=== PATIENT | female | born 1995 | race Caucasian/White ===

== ENCOUNTER 2022-04-18 20:00 | Outpatient (REF) | payer MEDICAID, SELFPAY ==
[2022-04-22 13:45] LABS: Chlamydia Result Negative (Negative); GC Result Negative (Negative)
== END 2022-04-18 20:01 | disposition home or self-care (01) ==
LOC: LBN 20:00
PROVIDERS: Visit Provider Physician Assistant Medical
DX: N89.8 Other specified noninflammatory disorders of vagina (principal); R35.0 Frequency of micturition; R30.0 Dysuria
CPT/HCPCS: 87329; 87491; 87591; 87480; 87510; 87660

== ENCOUNTER 2022-04-29 20:30 | Emergency (ER) | payer MEDICAID, SELFPAY ==
[2022-04-29 20:37] VITALS: BP 158/90; PULSE 89; RESP 18; TEMP 36.7; O2SAT 100
[2022-04-29] MEDS: Normal Saline 1,000 ML 1000 ML IV (22:10)
[2022-04-29 22:13] LABS: Abs Immature Grans 0.06 10^3/uL (0.0-0.06); Absolute Basophil Count 0.06 10^3/uL (0.0-0.2); Absolute Eosinophil Count 0.16 10^3/uL (0.0-0.7); Absolute Lymphocyte Count 3.14 10^3/uL (1.2-3.4); Absolute Monocyte Count 0.79 10^3/uL (0.1-0.8); Absolute Neutrophil Count 7.88 10^3/uL (1.2-6.7); Basophils % 0.5; Eosinophils % 1.3; HCT 40.9 % (36.0-46.0); HGB 13.6 g/dL (11.2-15.7); Immature Grans % 0.5; MCH 28.9 pg (27.0-33.0); MCHC 33.3 % (32.0-36.0); MCV 87 fL (80-95); MPV 8.8 fL (8.0-11.0); Monocytes % 6.5; Neutrophils % 65.2; Platelet Count 427 10^3/uL (130-400); RDW 13.1 % (11.7-14.6); RDW-SD 41.5 fL; WBC 12.08 10^3/uL (4.4-10.8)
[2022-04-29 22:15] LABS: Bilirubin Negative (Negative); Blood Small (Negative); Clarity Clear (Clear); Glucose Negative (Negative); Ketones Negative (Negative); Leukocyte Esterase Trace (Negative); Nitrite Negative (Negative); Specific Gravity 1.025 (1.005-1.025); Urobilinogen 0.2 EU/dL (Up TO 0.2)
[2022-04-29 22:25] LABS: Bacteria Few HPF (Negative); Crystals Negative HPF (Negative); Epithelial Cells Few HPF (Negative); Mucus Trace (Negative)
[2022-04-29 22:26] LABS: C & S Indicated? Yes
--- NOTE | 2022-04-29 22:45 | W.ED.GENAD ---
Discharge Plan Disposition Patient Disposition: HOME Condition: Improving Discharge Details Chief Complaint: Nausea/Vomit/Diar Clinical Impression: Nausea & vomiting, Weakness generalized Primary Care Provider: Unknown,Unknown ED Provider: Cm Weaver Home Meds and New Rx's Prescriptions: No Action No Known Home Meds Discharge Instructions Instructions: Acute Nausea and Vomiting (ED), Weakness (ED) Additional Instructions: Work-up in the ER does not reveal any obvious emergent process. Please watch for new or worsening symptoms and return to the ER for any concerns. Lastly, I have placed you on the care management list to help expedite outpatient primary care follow up Medical Decision Making 26-year-old female, obesity and anxiety, presents to the ER now reporting 2 separate episodes 1 today, one 1 month ago, of nausea, generalized weakness which resolved on its own in approximately 3 hours. She reports now denying any weakness or shakiness. Only symptom is that of mild nausea. Clinically she appears well, nontoxic, neurologically intact, hemodynamically stable. Currently being treated for BV. Plan is to obtain IV access, obtain routine screening laboratory values and provide IV fluid and Zofran Upon reevaluation patient reports that she is asymptomatic. Awaiting laboratory values Laboratory values are grossly unremarkable. Patient has mild nonspecific leukocytosis, she reports this is her baseline. No evidence of anemia. Electrolytes unremarkable. Creatinine 0.7 with a GFR of 122.25 glucose 108. LFTs unremarkable lipase 66 urinalysis reveals small blood trace leuk esterase, 5-10 white cells. Few epithelials. Culture is pending. Patient denies any dysuria or hematuria. Will await culture to potentially treat Discussed work-up with patient. She is relieved and has no additional questions or concerns. I placed the patient on the care management list to help expedite outpatient primary care follow-up. Standard discharge and return precautions were provided. Patient understands, is agreeable to this plan, and has no additional questions or concerns upon discharge. This documentation was generated using [employer] system, please disregard any oddities of phrase or misspellings. Medical Records Medical records reviewed: Yes I reviewed the patient's medical records. Lab Data Lab results reviewed: Yes I reviewed the patient's lab results. Labs: 04/29/22 22:10 Urine - Reflex from Ua Urine Culture - Pending Laboratory Tests Range/Units 04/29/22 04/29/22 04/29/22 22:05 22:05 22:10 WBC (4.4-10.8) 10^3/uL 12.08 H RBC (3.93-5.22) 10^6/uL 4.70 Hgb (11.2-15.7) g/dL 13.6 Hct (36.0-46.0) % 40.9 MCV (80-95) fL 87 MCH (27.0-33.0) pg 28.9 MCHC (32.0-36.0) % 33.3 RDW (11.7-14.6) % 13.1 Plt Count (130-400) 10^3/uL 427 H MPV (8.0-11.0) fL 8.8 Immature Gran % 0.5 Neutrophils % 65.2 Lymphocytes % 26.0 Monocytes % 6.5 Eosinophils % 1.3 Basophils % 0.5 Nucleated RBC % (0.0-0.3) % 0.0 Absolute Neutrophils (1.2-6.7) 10^3/uL 7.88 H Absolute Lymphocytes (1.2-3.4) 10^3/uL 3.14 Absolute Monocytes (0.1-0.8) 10^3/uL 0.79 Absolute Eosinophils (0.0-0.7) 10^3/uL 0.16 Absolute Basophils (0.0-0.2) 10^3/uL 0.06 Sodium (136-145) mmol/L 139 Potassium (3.5-5.1) mmol/L 3.7 Chloride (98-107) mmol/L 103 Carbon Dioxide (21.0-32.0) mmol/L 27.5 Anion Gap (3-11) mmol/L 8.5 BUN (7-18) mg/dL 12 Creatinine (0.55-1.02) mg/dL 0.7 Est GFR (CKD-EPI 2020) (mL/min/1.73m2) 122.25 Glucose (74-106) mg/dL 108 H Calcium (8.5-10.1) mg/dL 9.2 Total Bilirubin (0.2-1.0) mg/dL 0.4 AST (15-37) U/L 24 ALT (14-59) U/L 39 Alkaline Phosphatase (46-116) U/L 56 Total Protein (6.4-8.2) g/dL 8.0 Albumin (3.4-5.0) g/dL 3.8 Lipase (73-393) U/L 66 Urine Color (Yellow) Yellow Urine Clarity (Clear) Clear Urine pH (5-8) 7.0 Ur Specific [place] (1.005-1.025) 1.025 Urine Protein (Negative) mg/dL Negative Urine Ketones (Negative) mg/dL Negative Urine Blood (Negative) Small H Urine Nitrite (Negative) Negative Urine Bilirubin (Negative) Negative Urine Urobilinogen (Up TO 0.2) EU/dL 0.2 Ur Leukocyte Esterase (Negative) Trace H Urine RBC (0-2) HPF 3-5 H Urine WBC (0-5) HPF 5-10 Ur Epithelial Cells (Negative) HPF Few Urine Crystals (Negative) HPF Negative Urine Bacteria (Negative) HPF Few Urine Mucus (Negative) Trace Ur Culture Indicated? Yes Urine Glucose (Negative) mg/dL Negative HPI General Mode of arrival: ambulatory. Date/Time Provider Initiated Documentation: 04/29/22 21:50. Limitations to Documentation: no limitations. Information obtained by: patient. HPI Narrative: 26-year-old female, history of anxiety and obesity, presents to the ER reporting an episode today around 2 PM feeling nauseous and then had generalized body weakness, this resolved on its own over the next couple of hours and at this time she only feels slightly nauseous. Patient states that she had a similar episode 1 month ago, resolved on its own and she never sought medical attention. She denies recent trauma. Reports that she is currently being treated for BV. She denies headache, visual changes, neck pain, fever, chest pain, cough, shortness of breath, abdominal pain. She reports vomiting 2 or 3 times today. Reports a history of what she describes as gallbladder attacks but this does not feel the same, she has had no pain. She reports chronic back pain. She denies change of bowel or bladder function. Denies numbness, tingling, weakness, focal weakness in her extremities Related Data Home Medications Medication Instructions Recorded Confirmed Unknown [No Known Home Meds] 04/29/22 04/29/22 Allergies Allergy/AdvReac Type Severity Reaction Status Date / Time No Known Allergies Allergy Unverified 04/29/22 20:42 General Stated Complaint: Nausea/Vomit/Diar NANDA: 3 Review of Systems Constitutional Constitutional: Denies fever(s), Denies headache(s) and Reports weakness (Generalized) Eyes Eyes: Denies change in vision ENT Ears, Nose, Mouth, and Throat: Denies headache(s) and Denies neck pain Cardiovascular Cardiovascular: Denies chest pain and Denies dyspnea Respiratory Respiratory: Denies cough and Denies dyspnea Gastrointestinal Gastrointestinal: Denies abdominal pain, Reports nausea and Reports vomiting Genitourinary Genitourinary: Denies dysuria Musculoskeletal Musculoskeletal: Reports back pain, Denies neck pain, Denies numbness and Denies tingling Integumentary/Breasts Skin/Breast: Denies rash Neurologic Neurologic: Denies headache(s), Denies numbness, Denies tingling and Reports weakness (Generalized) PFSH All Active Problems (Updated 04/29/22 @ 23:12 by ANDRES Barger) Nausea & vomiting (Acute) Weakness generalized (Acute) Social History Smoking/Tobacco Use Status: Never Smoking risk assessment performed?: Yes Alcohol Intake: never Drug use: Never Substance use type: does not use Do you feel safe at home: Yes Do you feel safe in your relationship?: Yes Exam Const General: cooperative, healthy appearing, comfortable and no acute distress Orientation: alert, awake and oriented x3 HENMT Head: normal to inspection, normocephalic and atraumatic Face and sinus: normal facial exam Mouth: moist mucous membranes Throat: posterior oropharynx normal Eyes General: appearance normal, both eyes and all related structures Conjunctivae: conjunctivae normal Neck Neck: normal visual inspection, full ROM, no meningeal signs, trachea midline and supple Resp Effort & Inspection: normal respiratory effort and able to speak in complete sentences Auscultation: clear to auscultation bilaterally Cardio Rate: regular rate Rhythm: regular rhythm GI Inspection: obesity Palpation: soft, not firm, no guarding, no pulsatile masses and nontender Auscultation: normal bowel sounds Back/Spine/Pelvis Back: no CVA tenderness Skin General skin exam: no rashes or lesions noted Neuro General: patient alert, patient awake, moves all extremities and no focal motor deficits Cognition: normal cognition Speech: speech normal Gait: normal gait Motor: muscle tone normal throughout Sensory Exam: no sensory deficits noted Psych Appearance: grossly normal Mental Status: mental status grossly normal Course Vital Signs Vital signs: Vital Signs Temperature 36.7 C 04/29/22 20:37 Pulse 89 04/29/22 20:37 Respiratory Rate 18 04/29/22 20:37 Blood Pressure 158/90 H 04/29/22 20:37 Pulse Oximetry 100 04/29/22 20:37 Temperature 36.7 C 04/29/22 20:37 Temperature Source Skin 04/29/22 20:37 Pulse 89 04/29/22 20:37 Respiratory Rate 18 04/29/22 20:37 Respiratory Effort Non-Labored 04/29/22 20:43 Blood Pressure 158/90 H 04/29/22 20:37 Pulse Oximetry 100 04/29/22 20:37 Pain Level 8 04/29/22 20:37 Lab/Test Results Lab/Test Results: 04/29/22 22:10 Urine - Reflex from Ua Urine Culture - Pending Laboratory Tests Range/Units 04/29/22 04/29/22 22:05 22:10 WBC (4.4-10.8) 10^3/uL 12.08 H RBC (3.93-5.22) 10^6/uL 4.70 Hgb (11.2-15.7) g/dL 13.6 Hct (36.0-46.0) % 40.9 MCV (80-95) fL 87 MCH (27.0-33.0) pg 28.9 MCHC (32.0-36.0) % 33.3 RDW (11.7-14.6) % 13.1 Plt Count (130-400) 10^3/uL 427 H MPV (8.0-11.0) fL 8.8 Immature Gran % 0.5 Neutrophils % 65.2 Lymphocytes % 26.0 Monocytes % 6.5 Eosinophils % 1.3 Basophils % 0.5 Nucleated RBC % (0.0-0.3) % 0.0 Absolute Neutrophils (1.2-6.7) 10^3/uL 7.88 H Absolute Lymphocytes (1.2-3.4) 10^3/uL 3.14 Absolute Monocytes (0.1-0.8) 10^3/uL 0.79 Absolute Eosinophils (0.0-0.7) 10^3/uL 0.16 Absolute Basophils (0.0-0.2) 10^3/uL 0.06 Urine Color (Yellow) Yellow Urine Clarity (Clear) Clear Urine pH (5-8) 7.0 Ur Specific [place] (1.005-1.025) 1.025 Urine Protein (Negative) mg/dL Negative Urine Ketones (Negative) mg/dL Negative Urine Blood (Negative) Small H Urine Nitrite (Negative) Negative Urine Bilirubin (Negative) Negative Urine Urobilinogen (Up TO 0.2) EU/dL 0.2 Ur Leukocyte Esterase (Negative) Trace H Urine RBC (0-2) HPF 3-5 H Urine WBC (0-5) HPF 5-10 Ur Epithelial Cells (Negative) HPF Few Urine Crystals (Negative) HPF Negative Urine Bacteria (Negative) HPF Few Urine Mucus (Negative) Trace Ur Culture Indicated? Yes Urine Glucose (Negative) mg/dL Negative POC- Test(urine) Negative
[2022-04-29 22:47] LABS: ALT 39 U/L (14-59); AST 24 U/L (15-37); Albumin 3.8 g/dL (3.4-5.0); Alkaline Phosphatase 56 U/L (46-116); Anion Gap 8.5 mmol/L (3-11); BUN 12 mg/dL (7-18); Bilirubin, Total 0.4 mg/dL (0.2-1.0); CO2 27.5 mmol/L (21.0-32.0); CREATININE 0.7 mg/dL (0.55-1.02); Calcium 9.2 mg/dL (8.5-10.1); Chloride 103 mmol/L (98-107); Estimated GFR 122.25 (mL/min/1.73m2); Glucose 108 mg/dL (74-106); Lipase 66 U/L (73-393); Potassium 3.7 mmol/L (3.5-5.1); Sodium 139 mmol/L (136-145)
--- NOTE | 2022-04-29 23:00 | NUR.NOTE ---
Referral to Care Management to establish pcp routinely.Nursing Note:
[2022-04-29] MEDS: Ondansetron 4 MG/2 ML VIAL IVP (23:06)
== END 2022-04-29 23:28 | disposition home or self-care (01) ==
PROVIDERS: Emergency Provider Physician Assistant
DX: R11.2 Nausea with vomiting, unspecified (principal); R53.1 Weakness; E66.9 Obesity, unspecified; D72.829 Elevated white blood cell count, unspecified
CPT/HCPCS: 36415; 80053; 81025; 83690; 96361; 96374; 99284; 81003; 81015; 85025; 87086; J2405

== ENCOUNTER 2022-08-05 02:56 | Emergency (ER) | payer MEDICAID, SELFPAY ==
--- NOTE | 2022-08-05 02:58 | ED.GENADUL_ITS ---
Discharge Plan Disposition Patient Disposition: Home Condition: Improving Discharge Details Clinical Impression: Epigastric abdominal pain Primary Care Provider: None,None ED Provider: Gini Guo Home Meds and New Rx's Prescriptions: New sucralfate [Carafate] 1 gram tablet 1 gm PO QACHS Qty: 14 0RF pantoprazole [Protonix] 40 mg tablet,delayed release (DR/EC) 40 mg PO DAILY Qty: 14 0RF sucralfate [Carafate] 100 mg/mL suspension 10 ml PO QACHS Qty: 400 0RF Discharge Instructions Additional Instructions: Your blood tests today are reassurring and show no evidence of acute concerning findings. Your symptoms may be due to gastroesophageal reflux disease, gastritis, peptic ulcer disease among other possible gastrointestional causes. It is recommended to eliminate certain foods and drinks in the diet that may contribute to reflux including alcohol, citrus and spicy foods, high fat, fried and sugary foods, chocolate, peppermint and caffeine. Stress can also contribute to and worsen reflux or an ulcer. Prescriptions for carafate and protonix have been sent electronically to your pharmacy. Call the general surgery office tomorrow to schedule a follow up appointment for re-evaluation of your symptoms and consideration for upper endoscopy if your symptoms do not improve or worsen. Return immediately to the emergency department if you develop any worsening or new concerning symptoms. Referrals: Karri Ramirez MD [ [facility] STAFF PHYSICIAN] - Discharge Data Discharge Date/Time-TO BE ENTERED AT DEPARTURE: 08/05/22 04:17 Discharge Physician: Gini Guo Medical Decision Making 0310 -- 27yo F w/ a h/o morbid obesity, hiatal hernia and gerd presents for constant sharp upper abdominal pain and nausea for the past 5 days. Pt appears nontoxic. She has epigastric tenderness. Urine test negative. As her pain is worse with eating and she also admits to indigestion, suspect GI etiology, such as GERD, gastritis, PUD, cholelithiasis, cholecys titis, pancreatitis. History and presentation does not appear c/w ACS, PE, dissection. Will place an iv, bolus IVF, screening labs and give IV pepcid, zofran and PO GI cocktail and carafate and reassess. Do not see an indication for imaging at this time. 0415 --labs reviewed. White blood cell count 13.51. Remainder of labs unremarkable. Patient reassessed and she feels much better and would like to go home. Prescriptions for Carafate and Protonix sent electronically to her pharmacy. Patient had requested liquid Carafate which was also sent electronically. She is advised on possible triggers for GERD, gastritis. She is advised to call general surgery for follow-up and for consideration for upper endoscopy. Advised to follow up with the primary care doctor for re-evaluation. Usual and customary return precautions given prior to discharge. Medical Records Medical records reviewed: Yes I reviewed the patient's medical records. Lab Data Lab results reviewed: Yes I reviewed the patient's lab results. Labs: Laboratory Tests Range/Units 08/05/22 08/05/22 08/05/22 03:30 03:30 03:30 WBC (4.4-10.8) 10^3/uL 13.51 H RBC (3.93-5.22) 10^6/uL 4.46 Hgb (11.2-15.7) g/dL 13.2 Hct (36.0-46.0) % 39.7 MCV (80-95) fL 89 MCH (27.0-33.0) pg 29.6 MCHC (32.0-36.0) % 33.2 RDW (11.7-14.6) % 13.1 Plt Count (130-400) 10^3/uL 426 H MPV (8.0-11.0) fL 8.8 Immature Gran % 0.6 Neutrophils % 55.0 Lymphocytes % 34.9 Monocytes % 6.8 Eosinophils % 2.1 Basophils % 0.6 Nucleated RBC % (0.0-0.3) % 0.0 Absolute Neutrophils (1.2-6.7) 10^3/uL 7.43 H Absolute Lymphocytes (1.2-3.4) 10^3/uL 4.71 H Absolute Monocytes (0.1-0.8) 10^3/uL 0.92 H Absolute Eosinophils (0.0-0.7) 10^3/uL 0.28 Absolute Basophils (0.0-0.2) 10^3/uL 0.08 Sodium (136-145) mmol/L 141 Potassium (3.5-5.1) mmol/L 3.7 Chloride (98-107) mmol/L 104 Carbon Dioxide (21.0-32.0) mmol/L 26.8 Anion Gap (3-11) mmol/L 10.2 BUN (7-18) mg/dL 12 Creatinine (0.55-1.02) mg/dL 0.7 Est GFR (CKD-EPI 2020) (mL/min/1.73m2) 121.49 Glucose (74-106) mg/dL 106 Calcium (8.5-10.1) mg/dL 9.0 Total Bilirubin (0.2-1.0) mg/dL 0.2 AST (15-37) U/L 17 ALT (14-59) U/L 37 Alkaline Phosphatase (46-116) U/L 69 Total Protein (6.4-8.2) g/dL 7.9 Albumin (3.4-5.0) g/dL 3.9 Lipase (73-393) U/L 81 HPI General Mode of arrival: ambulatory . Date/Time Provider Initiated Documentation: 08/05/22 02:57 . Limitations to Documentation: no limitations . Information obtained by: patient . HPI Narrative: Pt is a 27yo F w/ a h/o morbid obesity and GERD who presents to the ED w/ a c/o upper abdominal pain for the past 5 days. Pt states the pain has been constant, sharp, located in the epigastrum with radiation to her back. Pt states the pain is worse with eating. She states the pain is currently 7/10. She admits to some relief with pepcid and carafate. She admits to nausea but denies fever, vomiting, chest pain, shortness of breath, urinary symptoms or diarrhea. Pt denies drugs and admits to occasional alcohol use. Last alcoholic drink 2 weeks ago. She states her last bowel movement was 2 hours ago and within normal limits. Pt states she has taken prilosec in the past but had reaction of feeling dizzy so stopped taking it. Related Data Home Medications Medication Instructions Recorded Confirmed pantoprazole 40 mg tablet,delayed 40 mg PO DAILY #14 tabs 08/05/22 release (Protonix) sucralfate 1 gram tablet (Carafate) 1 gm PO QACHS #14 tabs 08/05/22 sucralfate 100 mg/mL oral 10 ml PO QACHS #400 mL 08/05/22 suspension (Carafate) Previous Rx's Medication Instructions Recorded pantoprazole 40 mg tablet,delayed 40 mg PO DAILY #14 tabs 08/05/22 release (Protonix) sucralfate 1 gram tablet (Carafate) 1 gm PO QACHS #14 tabs 08/05/22 sucralfate 100 mg/mL oral 10 ml PO QACHS #400 mL 08/05/22 suspension (Carafate) Allergies Allergy/AdvReac Type Severity Reaction Status Date / Time No Known Allergies Allergy Unverified 08/05/22 04:13 General Stated Complaint: Abd Prob NANDA: 3 Review of Systems All systems reviewed & are unremarkable except as noted in HPI and below Constitutional Constitutional: Reports as per HPI, Denies chills and Denies fever(s) Eyes Eyes: Denies blurry vision ENT Ears, Nose, Mouth, and Throat: Denies dizziness, Denies sore throat and Denies throat swelling Cardiovascular Cardiovascular: Denies chest pain and Denies dyspnea Respiratory Respiratory: Denies cough and Denies dyspnea Gastrointestinal Gastrointestinal: Reports abdominal pain, Denies diarrhea, Reports nausea and Denies vomiting Genitourinary Genitourinary: Denies hematuria and Denies dysuria Musculoskeletal Musculoskeletal: Denies back pain and Denies numbness Integumentary/Breasts Skin/Breast: Denies lesions and Denies rash Neurologic Neurologic: Denies dizziness, Denies localized weakness and Denies numbness Allergic/Immunologic Allergic/Immunologic: Denies throat swelling PFSH All Active Problems (Updated 08/05/22 @ 03:52 by Gini Guo DO) Epigastric abdominal pain (Acute) Medical History (Updated 08/05/22 @ 03:52 by Gini Guo DO) GERD (gastroesophageal reflux disease) Hiatal hernia Morbid obesity Surgical History (Updated 08/05/22 @ 03:25 by Gini Guo DO) No significant past surgical history Social History Smoking/Tobacco Use Status: Never Smoking risk assessment performed?: Yes Alcohol Intake: never Drug use: Never Substance use type: does not use Do you feel safe at home: Yes Do you feel safe in your relationship?: Yes Exam Const General: cooperative, healthy appearing and no acute distress HENDC Head: normal to inspection Face and sinus: normal facial exam Eyes General: appearance normal, both eyes and all related structures Pupils: PERRL EOM: EOM intact bilaterally Neck Neck: normal visual inspection and No submandibular swelling Lymphatic: no lymphadenopathy noted Chest Chest: normal inspection of the chest and no tenderness Resp Effort & Inspection: normal respiratory effort and able to speak in complete sentences Auscultation: clear to auscultation bilaterally Cardio Rate: regular rate Rhythm: regular rhythm GI Inspection: normal to inspection Palpation: soft, not firm, not rigid and tender in the epigastrum Auscultation: hypoactive bowel sounds Back/Spine/Pelvis Thoracic/Lumbar Spine: thoracic and lumbar spine normal to inspection Pelvis: no pain with anterior-posterior compression Skin General skin exam: no rashes or lesions noted Neuro General: patient alert, patient awake and patient oriented x3 Cognition: normal cognition Speech: speech normal Motor: muscle tone normal throughout Sensory Exam: no sensory deficits noted Extrem General: normal to inspection, full ROM, capillary refill normal, no calf tenderness bilaterally and no edema Psych Appearance: grossly normal Mental Status: mental status grossly normal Speech and Movement: speech and movement normal Affect: normal affect
[2022-08-05 03:02] VITALS: BP 144/81; PULSE 104; RESP 16; TEMP 36.8; O2SAT 99
[2022-08-05 03:34] LABS: Abs Immature Grans 0.08 10^3/uL (0.0-0.06); Absolute Basophil Count 0.08 10^3/uL (0.0-0.2); Absolute Eosinophil Count 0.28 10^3/uL (0.0-0.7); Absolute Lymphocyte Count 4.71 10^3/uL (1.2-3.4); Absolute Monocyte Count 0.92 10^3/uL (0.1-0.8); Absolute Neutrophil Count 7.43 10^3/uL (1.2-6.7); Basophils % 0.6; Eosinophils % 2.1; HCT 39.7 % (36.0-46.0); HGB 13.2 g/dL (11.2-15.7); Immature Grans % 0.6; Lymphocytes % 34.9; MCH 29.6 pg (27.0-33.0); MCHC 33.2 % (32.0-36.0); MCV 89 fL (80-95); MPV 8.8 fL (8.0-11.0); Monocytes % 6.8; Platelet Count 426 10^3/uL (130-400); RBC 4.46 10^6/uL (3.93-5.22); RDW 13.1 % (11.7-14.6); RDW-SD 42.7 fL; WBC 13.51 10^3/uL (4.4-10.8)
[2022-08-05] MEDS: Famotidine 20 MG/2 ML VIAL IVP (03:35)
[2022-08-05] MEDS: Normal Saline 1,000 ML 1000 ML IV (03:35)
[2022-08-05] MEDS: Sucralfate 1 GM TAB PO (03:40)
[2022-08-05 03:43] LABS: Lipase 81 U/L (73-393)
[2022-08-05 03:48] LABS: ALT 37 U/L (14-59); AST 17 U/L (15-37); Albumin 3.9 g/dL (3.4-5.0); Alkaline Phosphatase 69 U/L (46-116); Anion Gap 10.2 mmol/L (3-11); BUN 12 mg/dL (7-18); Bilirubin, Total 0.2 mg/dL (0.2-1.0); CO2 26.8 mmol/L (21.0-32.0); CREATININE 0.7 mg/dL (0.55-1.02); Chloride 104 mmol/L (98-107); Estimated GFR 121.49 (mL/min/1.73m2); Glucose 106 mg/dL (74-106); Potassium 3.7 mmol/L (3.5-5.1); Sodium 141 mmol/L (136-145); Total Protein 7.9 g/dL (6.4-8.2)
[2022-08-05 04:21] VITALS: BP 156/94; PULSE 71; RESP 16; TEMP 36.8; O2SAT 98
== END 2022-08-05 04:17 | disposition home or self-care (01) ==
PROVIDERS: Emergency Provider Physician Assistant
DX: R10.13 Epigastric pain (principal)
CPT/HCPCS: 36415; 80053; 81025; 83690; 96361; 96374; 99284; 85025; 99283

== ENCOUNTER 2022-11-18 16:11 | Outpatient (REF) | payer MEDICAID, SELFPAY ==
--- NOTE | 2022-11-18 16:20 | PAPFT_PTH ---
PATIENT: Cassie Multani LOC: [facility] U#:[id number] AGE/SX: 27/F ROOM: RE11/18/[address]: Judith Jacob MD : [id number] BED: DIS: 11/18/2022 SPEC #: [id number] RECD: 11/18/22 17:51 STATUS: DEMARCUS REAmmon #: [id number] LAURA: 11/18/22 16:[address]: Judith Jacob DEPT: [facility] Cytology RECD BY: Fany Haider ENTERED: 11/18/22 17:51 SP TYPE: PAPFT RIRI DR: Zo Shultz APRN Tissues: 1 - CX/ENDOCX FOR PAP SMEARS Procedures: PAP THIN PREP/[facility] Screening Comments: [id number] (CHLAMYDIA/GC)
[2022-11-19 15:06] LABS: Chlamydia Result Negative (Negative); GC Result Negative (Negative)
== END 2022-11-18 16:12 | disposition home or self-care (01) ==
LOC: LBN 16:11
PROVIDERS: PCP Nurse Practitioner; Visit Provider Obstetrics & Gynecology
DX: R87.610 Atypical squamous cells of undetermined significance on cytologic smear of cervix (ASC-US) (principal)
CPT/HCPCS: 87491; 87591; 88142

== ENCOUNTER 2022-11-27 03:38 | Outpatient (CLI) | payer MEDICAID, SELFPAY ==
[2022-11-27 09:25] LABS: Calculated LDL 95 mg/dL (<100); Cholesterol 149 mg/dL (<200); HDL Cholesterol 38 mg/dL (40-60); TSH (W/Ref FT4) 2.81 uIU/mL (0.36-3.74); Triglyceride 80 mg/dL (<150)
[2022-11-28 09:26] LABS: HIV-1/2 Ag & Ab Screen Negative (Negative)
[2022-11-28 10:04] LABS: Hepatitis C Ab w Rflx HCV PCR Negative (Negative)
[2022-12-05 10:34] LABS: Testosterone, Free 0.77 ng/dL (<0.13-1.06); Testosterone, Total 26 ng/dL (8-60)
== END 2022-11-27 03:39 | disposition home or self-care (01) ==
LOC: LBO 03:38
PROVIDERS: Obstetrics & Gynecology; PCP Nurse Practitioner; Visit Provider Nurse Practitioner
DX: I10 Essential (primary) hypertension (principal); F41.8 Other specified anxiety disorders; K21.9 Gastro-esophageal reflux disease without esophagitis; E66.01 Morbid (severe) obesity due to excess calories; L68.8 Other hypertrichosis; R73.09 Other abnormal glucose; Z11.4 Encounter for screening for human immunodeficiency virus [HIV]; Z11.59 Encounter for screening for other viral diseases
CPT/HCPCS: 36415; 80061; 84402; 84403; 86803; 87389; 83036; 84443

== ENCOUNTER 2022-12-15 02:27 | Outpatient (CLI) | payer MEDICAID, SELFPAY ==
--- NOTE | 2022-12-15 07:15 | DI.US_ITS ---
Exam(s) US BREAST LT COMPLETE EXAM: US BREAST LT COMPLETE CLINICAL HISTORY: breast tenderness,n64.4 TECHNIQUE: Complete ultrasound of the left breast was performed using standard protocol. COMPARISON: No exams were available for comparison FINDINGS: No solid or cystic masses, hypoechoic foci, areas of abnormal shadowing, or areas of skin thickening. No ductal dilatation IMPRESSION: No sonographically suspicious finding. BI-RADS Category 1 - Negative A negative exam should not preclude further investigation of a clinically suspicious finding. DATA REPOSITORY:
== END 2022-12-15 02:47 ==
LOC: DI 02:27
PROVIDERS: PCP Nurse Practitioner; Visit Provider Obstetrics & Gynecology
DX: N64.4 Mastodynia (principal)
CPT/HCPCS: 76642

== ENCOUNTER 2022-12-31 21:45 | Emergency (ER) | payer MEDICAID, SELFPAY ==
[2022-12-31 21:48] VITALS: BP 158/95; PULSE 90; RESP 16; TEMP 36.8; O2SAT 99
--- NOTE | 2022-12-31 21:49 | ED.GENADUL_ITS ---
Discharge Plan Disposition Patient Disposition: Home Discharge Details Clinical Impression: Acute pharyngitis Primary Care Provider: Zo Shultz ED Provider: Domingo Fink Home Meds and New Rx's Prescriptions: Continued CBD Gummie 10 mg PO QAM levonorgestrel-ethinyl estrad 0.1-20 mg-mcg tablet 1 tab PO DAILY Qty: 84 4RF clindamycin phosphate 1 % gel 1 applic topical BID Qty: 30 2RF lamotrigine 100 mg tablet 50 mg PO DAILY Qty: 15 2RF Rx Instructions: * Take this after completing 2 weeks of 25 mg/day * Discharge Instructions Instructions: Pharyngitis (ED) Additional Instructions: Please read all of the information that accompanies these instructions. You were seen in the emergency department for your sore throat. Your strep swab was negative for strep. You will receive a call if your strep grows in the lab in the next several days. You will also receive a call if your COVID swab is positive. Please schedule an appointment with your primary care provider later this week. Please return to the emergency department if develop any shortness of breath difficulty swallowing or handling her secretions or any worsening pain. Medical Decision Making This is an overall very well-appearing normothermic and not tachycardic 27-year-old female with acute pharyngitis. Based on enlarged cervical node and history of prior strep pharyngitis requiring hospitalization we will swab for strep and treat if positive. Given endemic COVID we will also swab for COVID and influenza. Good range of motion in the neck so I am not concerned for meningitis. Not altered to suggest encephalitis. Uvula midline so I am not concerned for peritonsillar abscess. Good range of motion in the neck is also reassuring against retropharyngeal abscess. Patient is nontoxic to suggest epiglottitis and received her childhood immunizations. She is sexually active but has had a consistent partner for the past 10 years and she denies any history of sexually transmitted infections. Given no new partner and no history of STIs will defer gonorrhea and Chlamydia testing at this point. If her strep swab is negative I suspect that her pharyngitis is most likely secondary to a viral etiology. I will treat her with 8 mg of dexamethasone. I have given her return indications including inability to handle her secretions worsening pain or any changes in her voice. 11:20 PM Strep negative. Will reflex to culture. Influenza and COVID negative. HPI General Date/Time Provider Initiated Documentation: 12/31/22 21:49 . HPI Narrative: This is a 27-year-old female in the emergency department in the setting of a sore throat. She had some sick contacts and is concerned that she might have strep throat. She has been hospitalized in the past with strep throat. She reportedly had a fever last night to 102 ?F. She feels fatigued and has had some palpitations. She took 650 mg of acetaminophen and some DayQuil at 5 PM this evening. She also had some hives on her left medial thigh for which she took diphenhydramine. She has had no trouble swallowing. No change in her voice. She is sexually active with a single male partner with whom she has been for the past 10 years. No recent symptoms of abnormal vaginal discharge. Related Data Home Medications Medication Instructions Recorded Confirmed clindamycin phosphate 1 % topical 1 applic topical BID #30 grams 11/18/22 gel levonorgestrel-ethinyl estradiol 1 tab PO DAILY #84 tabs 11/18/22 11/20/22 0.1 mg-20 mcg tablet CBD Gummie 10 mg PO QAM 11/20/22 11/20/22 lamotrigine 100 mg tablet 50 mg PO DAILY #15 tabs 11/20/22 11/20/22 Previous Rx's Medication Instructions Recorded clindamycin phosphate 1 % topical 1 applic topical BID #30 grams 11/18/22 gel levonorgestrel-ethinyl estradiol 1 tab PO DAILY #84 tabs 11/18/22 0.1 mg-20 mcg tablet lamotrigine 100 mg tablet 50 mg PO DAILY #15 tabs 11/20/22 Allergies Allergy/AdvReac Type Severity Reaction Status Date / Time lisinopril Allergy Intermediate myalgias,leg Verified 11/20/22 09:32 swelling. aripiprazole [From Abilify] AdvReac Unknown Verified 11/20/22 09:32 bupropion [From Wellbutrin] AdvReac Unknown Verified 11/20/22 09:32 fluoxetine [From Prozac] AdvReac Unknown Verified 11/20/22 09:32 venlafaxine [From Effexor] AdvReac Unknown Verified 11/20/22 09:32 zoloft AdvReac Unknown Uncoded 11/20/22 09:32 General NANDA: 3 PFSH All Active Problems (Updated 12/31/22 @ 22:10 by Domingo Fink MD) Acute pharyngitis (Acute) Pre-diabetes (Acute) Hypertension (Chronic) Anxiety (Chronic) Major depressive disorder (Chronic) Obesity, morbid, BMI 50 or higher (Acute) History of HPV infection (Acute) PTSD (post-traumatic stress disorder) (Acute) Borderline personality disorder (Acute) PCOS (polycystic ovarian syndrome) (Acute) Acanthosis nigricans (Acute) PMS (premenstrual syndrome) (Acute) Excessive hair growth (Acute) Medical History (Updated 12/31/22 @ 22:10 by Domingo Fink MD) GERD (gastroesophageal reflux disease) Hiatal hernia Pelvic pain Surgical History (Updated 08/05/22 @ 03:25 by Gini Guo DO) No significant past surgical history Family History (Updated 09/24/22 @ 10:30 by Marisol Rosenbaum) Father Substance use disorder Cancer kidney Depression Hypertension Crohn's disease Mother Substance use disorder Depression Hypertension Fibromyalgia Paternal Grandmother Colon cancer Maternal Grandmother Cancer cervical Sister Crohn's disease Social History (Updated 11/20/22 @ 09:36 by Soraya Holman LPN) Smoking/Tobacco Use Status: Former Tobacco Use Quit Date: 03/10/21 Tobacco: How many years used: 5 Smoking risk assessment performed?: Yes Alcohol Intake: current Alcohol Intake frequency: holidays/special occasions only Counseling given: No Drug use: Never Substance use type: does not use and other Details: CBD gummie qd Adopted: No Caregiver/Support person: No Foster care: No Household members: children Housing: apartment Number of Children: 1 Communication Needs: None and Corrective Lenses Education Level: high school Do you need help understanding health information?: Never 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 Pets and animals: No Sexually active: Yes Do you think of yourself as: bisexual Current gender identity: female What is your relationship status?: never How often do you talk on the phone with friends or family?: once per week How often do you get together with friends or relatives?: never Do you belong to any clubs or organized social groups?: no Panel score (0-1 are the most socially isolated patients): 0 What type of physical activity do you participate in: yoga Duration: 45-60 minutes/day Frequency: 1-2 times per week Jaylin/Episcopalian: None Special jaylin needs: No Seatbelt use: always Helmet use: Yes Helmet use: always Drive intox or ride w/intox contract driver: No Working smoke detector in home: Yes Carbon monox detector in home: Yes Do you feel safe at home: Yes Do you feel safe in your relationship?: Yes Victim of physical abuse: No Victim of emotional abuse: No History History 3 Para 1 Hx # Term Pregnancies 1 Multiple births Hx # Pregnancies Ectopic pregnancies AB induced Hx Number of Living Children 1 AB spontaneous 2 Past Pregnancies Del. Date GA/Weeks # Preg Succ Route Wgt Sex Labor Lgth Anesth esia Location [facility] 09/18/14 Yes vaginal 2721.554 g Male Delivery Date: 09/18/14 Last Updated by: Latasha Patterson Exam Narrative Exam Narrative: General: Well-appearing in no acute distress speaking in complete sentences. Head: Normocephalic, atraumatic. Eye: Pupils equal, round reactive to light. Extraocular eye movements intact. No conjunctival injection. No scleral icterus. Ear, nose, mouth, throat: Mild posterior oropharynx erythema. Uvula midline. Normal voice, handling secretions normally. Neck: Trachea midline. Mild right-sided anterior cervical lymphadenopathy. No fluctuance. Cardiovascular: Well-perfused distal extremities. Respiratory: Nonlabored respiration. Clear lungs bilaterally. Gastrointestinal: Nondistended abdomen. Musculoskeletal: No edema. Moving all 4 extremities spontaneously. Skin: Normal for age and race, grossly normal temperature and turgor. No acute rash. Neurologic: Alert and appropriate, no apparent acute deficits. Psychiatric: Mood and manner are appropriate. Grooming and personal hygiene are appropriate.
--- NOTE | 2022-12-31 22:15 | RT.EKG_ITS ---
APPROVED REPORT Exam: Resting ECG Reason for Exam: Palpitations Patient Location: E HR:82 bpm ECG Measurements Heart Rate 82 AXIS NM 150 P 38 QRSd 95 QRS 34 QT 372 T 38 QTc 436 Conclusion Sinus rhythm...normal P axis, V-rate 60- 99 Narrow complex normal sinus rhythm at a rate of 82. Normal axis. Intervals within normal limits. N o ST segment abnormalities. No T wave inversions. No prior for comparison. No acute injury pattern .
[2022-12-31] MEDS: Dexamethasone 4 MG TAB 8 MG PO (22:20)
== END 2022-12-31 22:41 | disposition home or self-care (01) ==
PROVIDERS: Emergency Provider Emergency Medicine; PCP Nurse Practitioner
DX: J02.9 Acute pharyngitis, unspecified (principal)
CPT/HCPCS: 87426; 87637; 87880; 93005; 99283; 87081; 93010; J8540

== ENCOUNTER 2023-06-29 21:58 | Emergency (ER) | payer MEDICAID, SELFPAY ==
[2023-06-29 22:05] VITALS: BP 154/83; PULSE 110; RESP 16; TEMP 37.6; O2SAT 100
[2023-06-29 22:12] VITALS: BP 148/80; PULSE 98; RESP 16; TEMP 37.6; O2SAT 99
--- NOTE | 2023-06-29 22:17 | ED.GENADUL_ITS ---
Discharge Plan Disposition Patient Disposition: Home Condition: Good Discharge Details Clinical Impression: Urinary tract infection Primary Care Provider: Zo Shultz ED Provider: Katherine Diamond Home Meds and New Rx's Prescriptions: New cephalexin 500 mg tablet 500 mg PO Q12H Qty: 10 0RF No Action CBD Gummie 10 mg PO QAM Discharge Instructions Instructions: Urinary Tract Infection in Women (ED) Additional Instructions: Cephalexin twice a day for the next 7 days. Call your primary care doctor tomorrow to schedule an appointment to follow up on your visit today. Return to the emergency department for new or worsening symptoms including fever, vomiting, mid/upper back pain, or if your symptoms have not improved in 48 hours. Referrals: Zo Shultz, [employer] [Primary Care Provider] - Medical Decision Making 28yo F with hx HTN, obesity, presenting for possible UTI. Today progressively worsening dysuria and hematuria. No recent UTIs. No systemic symptoms. No CVA tenderness to suggest pyelonephritis. Slightly tachycardiac on arrival after ambulating, vital signs and physical exam otherwise reassuring. Low sucpion for sepsis. HR improved to mid 90's within 5 minutes of resting with no intervention; would not pursue further with labs at this time as patient both looks and feels well overall. UA suggestive of UTI. Prescribed 7 day course of cephalexin (1st dose here) and discharged home. Discharged home; discharge instructions including return precautions were reviewed with patient who verablized understanding. Alll questions were answered and they are in full agreement with the plan. Lab Data Lab results reviewed: Yes I reviewed the patient's lab results. Labs: 06/29/23 22:15 Urine - Reflex from Ua Urine Culture - Pending Laboratory Tests Range/Units 06/29/23 22:15 Urine Color (Yellow) Dark Yellow Urine Clarity (Clear) Cloudy Urine pH (5-8) 6.0 Ur Specific [place] (1.005-1.025) >= 1.030 H Urine Protein (Negative) mg/dL 100 H Urine Ketones (Negative) mg/dL Negative Urine Blood (Negative) Moderate H Urine Nitrite (Negative) Positive H Urine Bilirubin (Negative) Negative Urine Urobilinogen (Up to 0.2) mg/dL 0.2 Ur Leukocyte Esterase (Negative) Trace H Urine RBC (0-2) HPF 3-5 H Urine WBC (0-5) HPF 10-20 H Ur Epithelial Cells (Negative) HPF Few Urine Crystals (Negative) HPF Few Amorphous Urine Bacteria (Negative) HPF Few Urine Casts (Negative) LPF Negative Urine Mucus (Negative) Trace Ur Culture Indicated? Yes Urine Glucose (Negative) mg/dL Negative HPI General Mode of arrival: ambulatory . Date/Time Provider Initiated Documentation: 06/29/23 22:06 . Limitations to Documentation: no limitations . Information obtained by: patient . HPI Narrative: 28yo F with hx HTN, obesity, presenting for possible UTI. Reports dysuria starting this morning progressively worsening now with hematuria. Had similar symptoms in the past (years ago) with UTI. Noted low lumbar left back pain yesterday, no flank pain or thoracic pain. No fevers. She is otherwise in her usual state of health. Related Data Home Medications Medication Instructions Recorded Confirmed CBD Gummie 10 mg PO QAM 11/20/22 06/29/23 cephalexin 500 mg tablet 500 mg PO Q12H #10 tabs 06/29/23 Previous Rx's Medication Instructions Recorded cephalexin 500 mg tablet 500 mg PO Q12H #10 tabs 06/29/23 Allergies Allergy/AdvReac Type Severity Reaction Status Date / Time lisinopril Allergy Intermediate myalgias,leg Verified 06/29/23 22:15 swelling. aripiprazole [From Abilify] AdvReac Unknown Verified 06/29/23 22:15 bupropion [From Wellbutrin] AdvReac Unknown Verified 06/29/23 22:15 fluoxetine [From Prozac] AdvReac Unknown Verified 06/29/23 22:15 venlafaxine [From Effexor] AdvReac Unknown Verified 06/29/23 22:15 zoloft AdvReac Unknown Uncoded 06/29/23 22:15 General Stated Complaint: Urinary NANDA: 4 Review of Systems Narrative: see HPI PFSH All Active Problems (Updated 06/29/23 @ 22:37 by Katherine Diamond MD) Urinary tract infection (Acute) Class 3 severe obesity due to excess calories with body mass index (BMI) of 50.0 to 59.9 in adult (Acute) 03/13/23 Weight and Wellness Mild obstructive sleep apnea (Acute ~2022) 02/08/23 Polysomnogram Study Bipolar 2 disorder (Acute) Pre-diabetes (Acute) Hypertension (Chronic) Anxiety (Chronic) Major depressive disorder (Chronic) Obesity, morbid, BMI 50 or higher (Acute) History of HPV infection (Acute) PTSD (post-traumatic stress disorder) (Acute) Borderline personality disorder (Acute) PCOS (polycystic ovarian syndrome) (Acute) Acanthosis nigricans (Acute) PMS (premenstrual syndrome) (Acute) Excessive hair growth (Acute) Medical History (Updated 06/29/23 @ 22:37 by Katherine Diamond MD) Pelvic pain Hiatal hernia GERD (gastroesophageal reflux disease) Surgical History (Updated 08/05/22 @ 03:25 by Gini Guo DO) No significant past surgical history Family History (Updated 09/24/22 @ 10:30 by Marisol Rosenbaum) Father Substance use disorder Cancer kidney Depression Hypertension Crohn's disease Mother Substance use disorder Depression Hypertension Fibromyalgia Paternal Grandmother Colon cancer Maternal Grandmother Cancer cervical Sister Crohn's disease Social History (Updated 11/20/22 @ 09:36 by Soraya Holman LPN) Smoking/Tobacco Use Status: Former Tobacco Use Quit Date: 03/10/21 Tobacco: How many years used: 5 Smoking risk assessment performed?: Yes Alcohol Intake: current Alcohol Intake frequency: holidays/special occasions only Counseling given: No Drug use: Rarely Substance use type: marijuana and other Details: CBD gummie qd Adopted: No Caregiver/Support person: No Foster care: No Household members: children Housing: apartment Number of Children: 1 Communication Needs: None and Corrective Lenses Education Level: high school Do you need help understanding health information?: Never 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 Pets and animals: No Sexually active: Yes Do you think of yourself as: bisexual Current gender identity: female What is your relationship status?: never How often do you talk on the phone with friends or family?: once per week How often do you get together with friends or relatives?: never Do you belong to any clubs or organized social groups?: no Panel score (0-1 are the most socially isolated patients): 0 What type of physical activity do you participate in: yoga Duration: 45-60 minutes/day Frequency: 1-2 times per week Jaylin/Presybeterian: None Special jaylin needs: No Seatbelt use: always Helmet use: Yes Helmet use: always Drive intox or ride w/intox milk pickup driver: No Working smoke detector in home: Yes Carbon monox detector in home: Yes Do you feel safe at home: Yes Do you feel safe in your relationship?: Yes Victim of physical abuse: No Victim of emotional abuse: No History History 3 Para 1 Hx # Term Pregnancies 1 Multiple births Hx # Pregnancies Ectopic pregnancies AB induced Hx Number of Living Children 1 AB spontaneous 2 Past Pregnancies Del. Date GA/Weeks # Preg Succ Route Wgt Sex Labor Lgth Anesth esia Location Prov Complic 09/18/14 Yes vaginal 2721.554 g Male Delivery Date: 09/18/14 Last Updated by: Latasha Ness Hoahaoism Exam Narrative Exam Narrative: General: Alert, well appearing, well nourished, in no acute distress. Head: Normocephalic, atraumatic Neck: Trachea midline, Neck supple. Cardiac: Slightly tachycardiac rate in 90's, regular. Resp: No respiratory distress. Speaking in full sentences. Abd: Soft, non-distended, nontender : No suprapubic tenderness. No CVA tenderness. Back: Mild left low lumbar/sacral paraspinal tenderness. Extremities: No deformities. Neurologic: GCS 15. Moves all extremities freely against gravity Course Vital Signs Vital signs: Vital Signs Temperature 37.6 C H 06/29/23 22:05 Pulse 110 H 06/29/23 22:05 Respiratory Rate 16 06/29/23 22:05 Blood Pressure 154/83 H 06/29/23 22:05 Pulse Oximetry 100 06/29/23 22:05 Temperature 37.6 C H 06/29/23 22:12 Temperature Source Temporal Artery Scan 06/29/23 22:05 Pulse 98 H 06/29/23 22:12 Respiratory Rate 16 06/29/23 22:12 Respiratory Effort Normal, Non-Labored 06/29/23 22:11 Blood Pressure 148/80 H 06/29/23 22:12 Blood Pressure Position Sitting 06/29/23 22:12 Pulse Oximetry 99 06/29/23 22:12 Oxygen Delivery Method Room Air 06/29/23 22:12 Oxygen Flow Rate 0 06/29/23 22:05 Pain Level 10 06/29/23 22:05 Comment 10 while urinating, 0 at rest 06/29/23 22:05
[2023-06-29 22:21] LABS: Bilirubin Negative (Negative); Blood Moderate (Negative); Clarity Cloudy (Clear); Glucose Negative (Negative); Ketones Negative (Negative); Leukocyte Esterase Trace (Negative); Nitrite Positive (Negative); Specific Gravity >= 1.030 (1.005-1.025); Urobilinogen 0.2 mg/dL (Up to 0.2)
[2023-06-29 22:28] LABS: Epithelial Cells Few HPF (Negative)
[2023-06-29 22:29] LABS: Bacteria Few HPF (Negative); C & S Indicated? Yes; Casts Negative LPF (Negative); Crystals Few Amorphous HPF (Negative); Mucus Trace (Negative)
[2023-06-29 22:48] VITALS: BP 131/73; PULSE 100; RESP 16; O2SAT 97
[2023-06-29] MEDS: Cephalexin 500 MG CAP PO (22:48)
[2023-06-29] MEDS: Cephalexin 500 MG CAP, 4 CAPS/BTL PO (22:48)
== END 2023-06-29 22:49 | disposition home or self-care (01) ==
PROVIDERS: Emergency Provider Student in an Organized Health Care Education/Training Program; PCP Nurse Practitioner
DX: N39.0 Urinary tract infection, site not specified (principal); M54.50 Low back pain, unspecified; I10 Essential (primary) hypertension
CPT/HCPCS: 87077; 99283; 81003; 81015; 87086; 87186

== ENCOUNTER 2023-12-10 21:39 | Emergency (ER) | payer MEDICAID, SELFPAY ==
[2023-12-10 21:43] VITALS: BP 175/104; PULSE 96; RESP 20; TEMP 36.8; O2SAT 100
--- NOTE | 2023-12-10 22:00 | RT.EKG_ITS ---
APPROVED REPORT Exam: Resting ECG Reason for Exam: epigastric pain, nausea Patient Location: E HR:91 bpm ECG Measurements Heart Rate 91 AXIS TN 168 P 36 QRSd 94 QRS 25 QT 362 T 38 QTc 446 Conclusion Sinus rhythm...normal P axis, V-rate 60- [address] segment or t wave abnormalities to suggest occlusive MT
--- NOTE | 2023-12-10 22:00 | DI.CT_ITS ---
Exam(s) CT ABDOMEN PELVIS W EXAM: CT ABDOMEN PELVIS W CLINICAL HISTORY: epigastrig/periumbilical abd pain. TECHNIQUE: Imaging Protocol: Axial computed tomography images with coronal and sagittal reformatted images were created and reviewed CONTRAST MATERIAL: Intravenous: Omnipaque-350 100cc Oral: None COMPARISON: No exams were available for comparison FINDINGS: VISUALIZED LUNG BASES: There are few small bubbles in the right lung base. The largest of these is p leural based at the level the right hemidiaphragm and measures 8 by 6 mm. No obvious nodule seen in the left lung base. No pleural effusions.. ABDOMEN: There is no ascites. LIVER: Liver is hypodense implying steatosis. There are no focal hepatic lesions evident. No dilate d intrahepatic ducts. GALLBLADDER/BILIARY: No obvious gallbladder pathology. CBD is not dilated. PANCREAS: No evidence of pancreatic mass nor dilatation of the pancreatic duct. SPLEEN: Spleen is not enlarged. No obvious intrasplenic lesions. Splenic and portal veins are paten t. ADRENALS: There are no significant adrenal masses. KIDNEYS:No cysts evident. No solid renal masses. No calculi nor hydronephrosis.. ABDOMINAL AORTA: Abdominal aorta is not enlarged. LYMPH NODES:There is no retroperitoneal nor paraaortic adenopathy. ABDOMINAL WALL: There is diastasis recti in the midline. Small fat containing umbilical hernia. No michael wel loops therein. GI: There is no evidence of bowel obstruction, free air, nor abscess. PELVIS: GI: No evidence of appendicitis.No evidence of sigmoid diverticulitis. LYMPH NODES: There is no intrapelvic nor inguinal adenopathy. REPRODUCTIVE: Uterus and adnexal regions appear unremarkable. There is no free fluid in the pelvis. URINARY BLADDER: No calculi nor obvious masses evident OSSEOUS: No fractures and no significant osseous lesions. IMPRESSION: 1. No acute findings in the abdomen and pelvis. 2. Other findings as above. RADIATION DOSE DELIVERED: 1,599.14mGy.cm Total DLP DATA REPOSITORY: All CT scans at this facility are submitted to the National Radiology Data Registry (NRDR) Dose Index Registry (DIR) with the [employer] (ACR). RADIATION OPTIMIZATION: All CT scans at this facility use at least one of these dose optimization te chniques: automated exposure control; mA and/or kV adjustment per patient size (includes targeted exa ms where dose is matched to clinical indication); or iterative reconstruction.
[2023-12-10 22:32] LABS: Abs Immature Grans 0.07 10^3/uL (0.0-0.06); Absolute Basophil Count 0.06 10^3/uL (0.0-0.2); Absolute Eosinophil Count 0.36 10^3/uL (0.0-0.7); Absolute Lymphocyte Count 4.56 10^3/uL (1.2-3.4); Absolute Monocyte Count 0.88 10^3/uL (0.1-0.8); Absolute Neutrophil Count 6.95 10^3/uL (1.2-6.7); Basophils % 0.5 %; Eosinophils % 2.8 %; HCT 41.5 % (36.0-46.0); HGB 13.5 g/dL (11.2-15.7); Immature Grans % 0.5 %; Lymphocytes % 35.4 %; MCH 29.2 pg (27.0-33.0); MCHC 32.5 % (32.0-36.0); MCV 90 fL (80-95); MPV 8.6 fL (8.0-11.0); Monocytes % 6.8 %; Platelet Count 405 10^3/uL (130-400); RBC 4.63 10^6/uL (3.93-5.22); RDW 13.3 % (11.7-14.6); RDW-SD 43.8 fL; WBC 12.87 10^3/uL (4.4-10.8)
[2023-12-10 22:33] LABS: Lactate 0.8 mmol/L (0.6-1.4)
[2023-12-10] MEDS: ACETAMINOPHEN 1,000 MG/100 ML BTL 400 MG IVPB (22:37)
[2023-12-10] MEDS: Normal Saline 500 ML 1000 ML IV (22:38)
[2023-12-10 22:40] LABS: Bilirubin Negative (Negative); Blood Negative (Negative); Clarity Clear (Clear); Glucose Negative (Negative); Ketones 15 mg/dL (Negative); Leukocyte Esterase Negative (Negative); Nitrite Negative (Negative); Urobilinogen 0.2 mg/dL (Up to 0.2)
[2023-12-10] MEDS: Normal Saline - Diluent 50 ML VIAL IJ (22:50)
[2023-12-10] MEDS: Omnipaque 350 MG/ML 100 ML BTL IJ (22:51)
[2023-12-10] MEDS: Normal Saline Flush 10 ML SYR IVP (22:51)
[2023-12-10 22:53] LABS: ALT 44 U/L (14-59); AST 18 U/L (15-37); Albumin 4.3 g/dL (3.4-5.0); Alkaline Phosphatase 55 U/L (46-116); Anion Gap 13.6 mmol/L (3-11); BUN 9 mg/dL (7-18); Bilirubin, Total 0.7 mg/dL (0.2-1.0); CO2 24.4 mmol/L (21.0-32.0); CREATININE 0.6 mg/dL (0.55-1.02); Calcium 9.3 mg/dL (8.5-10.1); Chloride 102 mmol/L (98-107); Estimated GFR 125.31 (mL/min/1.73m2); Glucose 82 mg/dL (74-106); HCG Quant, Pregnancy 5 mIU/mL (1-3); Potassium 3.6 mmol/L (3.5-5.1); Sodium 140 mmol/L (136-145); Total Protein 8.3 g/dL (6.4-8.2)
[2023-12-10 22:54] LABS: Troponin I < 50 ng/L (< or =60)
[2023-12-10 23:01] LABS: Lipase 19 U/L (16-77)
--- NOTE | 2023-12-10 23:47 | DI.VRAD_ITS ---
PROCEDURE INFORMATION: Exam: CT Abdomen And Pelvis With Contrast Exam date and time: 12/10/2023 22:54 Age: 28 years old Clinical indication: Other: Epigastrig/periumbilical abd pain TECHNIQUE: Imaging protocol: Computed tomography of the abdomen and pelvis with contrast. Contrast material: OMNIPAQUE 350; Contrast volume: 100 ml; Contrast route: INTRAVENOUS (IV); COMPARISON: No relevant prior studies available. FINDINGS: Lungs: Tiny right lower lobe pulmonary nodules. Likely benign at this patient's age. Liver: Fatty liver with no mass lesions. Gallbladder and bile ducts: No calcified stones. No ductal dilation. Pancreas: No ductal dilation. No masses. Spleen: No splenomegaly or focal lesions. Adrenal glands: No mass. Kidneys and ureters: No renal masses or hydronephrosis bilaterally. Stomach and bowel: No obstruction. No mucosal thickening. Appendix: Normal morphology of the appendix. Intraperitoneal space: No free air. No significant fluid collection. Vasculature: No abdominal aortic aneurysm. Lymph nodes: No significantly enlarged lymph nodes. Urinary bladder: Unremarkable as visualized. Reproductive: Unremarkable as visualized. Bones/joints: No acute fracture or subluxation. Soft tissues: Prominent subcutaneous fat. Small fat-containing umbilical hernia. Diastasis recti. IMPRESSION: 1. No acute findings. 2. Incidental findings as described. Dictated and Authenticated by: Thao Villalobos MD. Ordering:TRUDY Murphy MD
--- NOTE | 2023-12-11 00:25 | ED.GENADUL_ITS ---
Discharge Plan Disposition Patient Disposition: Home Condition: Good Discharge Details Clinical Impression: Abdominal pain Primary Care Provider: Zo Shultz ED Provider: Katherine Diamond Home Meds and New Rx's Prescriptions: New ondansetron 4 mg tablet,disintegrating 4 mg PO Q8H Qty: 20 0RF No Action CBD Gummie 10 mg PO QAM Discharge Instructions Instructions: Abdominal Pain (ED) Additional Instructions: Tylenol over the counter as needed for pain; follow the directions on the bottle. Ondansetron up to every 8 hours for nausea. Call your primary care doctor today to schedule an appointment within one week to follow up on your visit here. If you do not get your period when you expect to, please take a home test. Return to the emergency department for new or worsening symptoms including new/different/worse pain, inability to keep down fluids, or if you have any other concerns. Referrals: Zo Shultz, PERSONNEL ASSOCIATE [Primary Care Provider] - [facility] General Mode of arrival: ambulatory . Date/Time Provider Initiated Documentation: 12/10/23 21:41 . Limitations to Documentation: no limitations . Information obtained by: patient . HPI Narrative: 28yo F with hx of HTN, PCOS, presenting for two days of intermittent abdominal pain. Associated nausea. Vomited twice yesterday, nonbloody nonbilious, no vomiting today. Pain is epigastric as well as periumbilical, moderate, cramping, intermittent, comes in waves. Has not taken anything at home for pain. No constipation, diarrhea, or bloody stool. No lower abdominal pain. No fevers, chills, rash, dysuria, hematuria, or other concerns. Related Data Home Medications Medication Instructions Recorded Confirmed CBD Gummie 10 mg PO QAM 11/20/22 12/10/23 ondansetron 4 mg disintegrating 4 mg PO Q8H #20 tabs 12/11/23 tablet Previous Rx's Medication Instructions Recorded ondansetron 4 mg disintegrating 4 mg PO Q8H #20 tabs 12/11/23 tablet Allergies Allergy/AdvReac Type Severity Reaction Status Date / Time lisinopril Allergy Intermediate myalgias,leg Verified 12/10/23 21:48 swelling. aripiprazole [From Abilify] AdvReac Unknown Other (See Verified 12/10/23 21:48 Comment) bupropion [From Wellbutrin] AdvReac Unknown Other (See Verified 12/10/23 21:48 Comment) fluoxetine [From Prozac] AdvReac Unknown Other (See Verified 12/10/23 21:48 Comment) venlafaxine [From Effexor] AdvReac Unknown Other (See Verified 12/10/23 21:48 Comment) zoloft AdvReac Unknown Other (See Uncoded 12/10/23 21:48 Comment) General Stated Complaint: Abd Prob NANDA: 3 Review of Systems Narrative: see HPI Exam Narrative Exam Narrative: General: Alert, well appearing, obese, in no acute distress. Head: Normocephalic, atraumatic Neck: Trachea midline, ?Neck supple. ENT: ?MMM.? No oropharygeal lesions or exudate. Cardiac: ?RRR, no murmurs appreciated Resp: No respiratory distress. CTAB. Abd: ?Soft, non-distended, mild epigastric tenderness to palpation. No rebound or guarding. Negative Corona's. No lower abodminal tenderness. : ?No suprapubic tenderness. No CVA tenderness. Extremities: ?No deformities.? No peripheral edema. Neurologic: GCS 15. ? Moves all extremities freely against gravity Course Vital Signs Vital signs: Vital Signs Temperature 36.8 C 12/10/23 21:43 Pulse 96 H 12/10/23 21:43 Respiratory Rate 20 12/10/23 21:43 Blood Pressure 175/104 H 12/10/23 21:43 Pulse Oximetry 100 12/10/23 21:43 Temperature 36.8 C 12/10/23 21:43 Temperature Source Skin 12/10/23 21:43 Pulse 96 H 12/10/23 21:43 Respiratory Rate 20 12/10/23 21:43 Respiratory Effort Normal, Non-Labored 12/10/23 21:47 Blood Pressure 175/104 H 12/10/23 21:43 Blood Pressure Position Sitting 12/10/23 21:43 Pulse Oximetry 100 12/10/23 21:43 Oxygen Delivery Method Room Air 12/10/23 21:43 Oxygen Flow Rate 0 12/10/23 21:43 Pain Level 2 12/10/23 23:36 Lab/Test Results Lab/Test Results: Laboratory Tests Range/Units 12/10/23 22:25 WBC (4.4-10.8) 10^3/uL 12.87 H RBC (3.93-5.22) 10^6/uL 4.63 Hgb (11.2-15.7) g/dL 13.5 Hct (36.0-46.0) % 41.5 MCV (80-95) fL 90 MCH (27.0-33.0) pg 29.2 MCHC (32.0-36.0) % 32.5 RDW (11.7-14.6) % 13.3 Plt Count (130-400) 10^3/uL 405 H MPV (8.0-11.0) fL 8.6 Immature Gran % % 0.5 Neutrophils % % 54.0 Lymphocytes % % 35.4 Monocytes % % 6.8 Eosinophils % % 2.8 Basophils % % 0.5 Nucleated RBC % (0.0-0.3) % 0.0 Absolute Neutrophils (1.2-6.7) 10^3/uL 6.95 H Absolute Lymphocytes (1.2-3.4) 10^3/uL 4.56 H Absolute Monocytes (0.1-0.8) 10^3/uL 0.88 H Absolute Eosinophils (0.0-0.7) 10^3/uL 0.36 Absolute Basophils (0.0-0.2) 10^3/uL 0.06 VBG Lactate (0.6-1.4) mmol/L 0.8 Sodium (136-145) mmol/L 140 Potassium (3.5-5.1) mmol/L 3.6 Chloride (98-107) mmol/L 102 Carbon Dioxide (21.0-32.0) mmol/L 24.4 Anion Gap (3-11) mmol/L 13.6 H BUN (7-18) mg/dL 9 Creatinine (0.55-1.02) mg/dL 0.6 Est GFR (CKD-EPI 2020) (mL/min/1.73m2) 125.31 Glucose (74-106) mg/dL 82 Calcium (8.5-10.1) mg/dL 9.3 Total Bilirubin (0.2-1.0) mg/dL 0.7 AST (15-37) U/L 18 ALT (14-59) U/L 44 Alkaline Phosphatase (46-116) U/L 55 Troponin I (< or =60) ng/L < 50 Total Protein (6.4-8.2) g/dL 8.3 H Albumin (3.4-5.0) g/dL 4.3 Lipase (16-77) U/L 19 Beta HCG, Quant (1-3) mIU/mL 5 H Urine Color (Yellow) Yellow Urine Clarity (Clear) Clear Urine pH (5-8) 6.0 Ur Specific [place] (1.005-1.025) 1.010 Urine Protein (Neg-Trace) mg/dL Negative Urine Ketones (Negative) mg/dL 15 H Urine Blood (Negative) Negative Urine Nitrite (Negative) Negative Urine Bilirubin (Negative) Negative Urine Urobilinogen (Up to 0.2) mg/dL 0.2 Ur Leukocyte Esterase (Negative) Negative Urine Glucose (Negative) mg/dL Negative POC- Test(urine) Negative Medical Decision Making 28yo F with hx of HTN, PCOS, presenting for two days of intermittent crampy abdominal pain; yesterday vomited x 2, today nauseated. Normal stools. Hypertesnive on arrival, vital signs otherwise reassuring. Mild epigastric and periumblical tenderness on exam. Negative Muprhy's, less likely cholecystitis. No lower abdominal pain or tenderness to suggest ovarian or uterine pathology (torsion, ectopic, etc); would not transfer for ultrasound. Given IV tylenol for pain; patient declined antiemetics. EKG NSR, no ST segment or T wave abnormalities to suggest occlusive RI. Labs reviewed as below, CBC reassuring, CMP with no actionable abnormalities, lactate normal, lipase normal (not pancreaittis), troponin negative (would not further pursue ACS). UA negative for infection. Upreg negative; serum equivocal at 5. Patient denies chance of . CT indepdnently revieweid, no bowel obstruction or free fluid on my view, radiology read below with no acute pathology including no appendicitis, obstruction kidney stone, gallbladder inflammation, or other surgical pathology. Repeat vital signs reassuring and abdominal exam remains non-peritoneal. On reassessment patient reports feeling somewhat better after tylenol. Advised of incidental findings including pulmonary nodules and equivocal test; advised to followup wtih PCP. Discharged home; discharge instructions and return precautions were reviewed with patient who jaret balized understanding. All questions were answered and she is in full agreement with the plan. Imaging Data Radiologic Study: Imaging: CT Scan Radiologist's impression: IMPRESSION: 1. No acute findings. 2. Incidental findings as described Lab Data Lab results reviewed: Yes I reviewed the patient's lab results. Labs: Laboratory Tests Range/Units 12/10/23 22:25 WBC (4.4-10.8) 10^3/uL 12.87 H RBC (3.93-5.22) 10^6/uL 4.63 Hgb (11.2-15.7) g/dL 13.5 Hct (36.0-46.0) % 41.5 MCV (80-95) fL 90 MCH (27.0-33.0) pg 29.2 MCHC (32.0-36.0) % 32.5 RDW (11.7-14.6) % 13.3 Plt Count (130-400) 10^3/uL 405 H MPV (8.0-11.0) fL 8.6 Immature Gran % % 0.5 Neutrophils % % 54.0 Lymphocytes % % 35.4 Monocytes % % 6.8 Eosinophils % % 2.8 Basophils % % 0.5 Nucleated RBC % (0.0-0.3) % 0.0 Absolute Neutrophils (1.2-6.7) 10^3/uL 6.95 H Absolute Lymphocytes (1.2-3.4) 10^3/uL 4.56 H Absolute Monocytes (0.1-0.8) 10^3/uL 0.88 H Absolute Eosinophils (0.0-0.7) 10^3/uL 0.36 Absolute Basophils (0.0-0.2) 10^3/uL 0.06 VBG Lactate (0.6-1.4) mmol/L 0.8 Sodium (136-145) mmol/L 140 Potassium (3.5-5.1) mmol/L 3.6 Chloride (98-107) mmol/L 102 Carbon Dioxide (21.0-32.0) mmol/L 24.4 Anion Gap (3-11) mmol/L 13.6 H BUN (7-18) mg/dL 9 Creatinine (0.55-1.02) mg/dL 0.6 Est GFR (CKD-EPI 2020) (mL/min/1.73m2) 125.31 Glucose (74-106) mg/dL 82 Calcium (8.5-10.1) mg/dL 9.3 Total Bilirubin (0.2-1.0) mg/dL 0.7 AST (15-37) U/L 18 ALT (14-59) U/L 44 Alkaline Phosphatase (46-116) U/L 55 Troponin I (< or =60) ng/L < 50 Total Protein (6.4-8.2) g/dL 8.3 H Albumin (3.4-5.0) g/dL 4.3 Lipase (16-77) U/L 19 Beta HCG, Quant (1-3) mIU/mL 5 H Urine Color (Yellow) Yellow Urine Clarity (Clear) Clear Urine pH (5-8) 6.0 Ur Specific [place] (1.005-1.025) 1.010 Urine Protein (Neg-Trace) mg/dL Negative Urine Ketones (Negative) mg/dL 15 H Urine Blood (Negative) Negative Urine Nitrite (Negative) Negative Urine Bilirubin (Negative) Negative Urine Urobilinogen (Up to 0.2) mg/dL 0.2 Ur Leukocyte Esterase (Negative) Negative Urine Glucose (Negative) mg/dL Negative Quality:SDOH Health Related Social Needs: No Data to Display PFSH All Active Problems (Updated 12/11/23 @ 00:27 by Katherine Diamond MD) Abdominal pain (Acute) Dental abscess (Acute) Class 3 severe obesity due to excess calories with body mass index (BMI) of 50.0 to 59.9 in adult (Acute) 03/13/23 [facility] Mild obstructive sleep apnea (Acute ~2022) 02/08/23 Polysomnogram Study Bipolar 2 disorder (Acute) Pre-diabetes (Acute) Hypertension (Chronic) Anxiety (Chronic) Major depressive disorder (Chronic) Obesity, morbid, BMI 50 or higher (Acute) History of HPV infection (Acute) PTSD (post-traumatic stress disorder) (Acute) Borderline personality disorder (Acute) PCOS (polycystic ovarian syndrome) (Acute) Acanthosis nigricans (Acute) PMS (premenstrual syndrome) (Acute) Excessive hair growth (Acute) Medical History (Updated 12/11/23 @ 00:27 by Katherine Diamond MD) Pelvic pain Hiatal hernia GERD (gastroesophageal reflux disease) Surgical History (Updated 08/05/22 @ 03:25 by Gini Guo DO) No significant past surgical history Family History (Updated 09/24/22 @ 10:30 by Marisol Rosenbaum) Father Substance use disorder Cancer kidney Depression Hypertension Crohn's disease Mother Substance use disorder Depression Hypertension Fibromyalgia Paternal Grandmother Colon cancer Maternal Grandmother Cancer cervical Sister Crohn's disease Social History (Updated 11/20/22 @ 09:36 by Soraya Holman LPN) Smoking/Tobacco Use Status: Former Tobacco Use Quit Date: 03/10/21 Tobacco: How many years used: 5 Smoking risk assessment performed?: Yes Alcohol Intake: current Alcohol Intake frequency: holidays/special occasions only Counseling given: No Drug use: Rarely Substance use type: marijuana and other Details: CBD gummie qd Adopted: No Caregiver/Support person: No Foster care: No Household members: children Housing: apartment Number of Children: 1 Communication Needs: None and Corrective Lenses Education Level: high school Do you need help understanding health information?: Never 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 Pets and animals: No Sexually active: Yes Do you think of yourself as: bisexual Current gender identity: female What is your relationship status?: never How often do you talk on the phone with friends or family?: once per week How often do you get together with friends or relatives?: never Do you belong to any clubs or organized social groups?: no Panel score (0-1 are the most socially isolated patients): 0 What type of physical activity do you participate in: yoga Duration: 45-60 minutes/day Frequency: 1-2 times per week Jaylin/Mormon: None Special jaylin needs: No Seatbelt use: always Helmet use: Yes Helmet use: always Drive 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 Date GA/Weeks # Preg Succ Route Wgt Sex Labor Lgth Anesth esia Location [facility] 09/18/14 Yes vaginal 2721.554 g Male Delivery Date: 02/09/15 Last Updated by: Latasha Patterson
[2023-12-11 00:36] VITALS: BP 139/80; PULSE 72; RESP 18; TEMP 36.6; O2SAT 98
== END 2023-12-11 00:36 | disposition home or self-care (01) ==
PROVIDERS: Emergency Provider Student in an Organized Health Care Education/Training Program; PCP Nurse Practitioner
DX: R10.13 Epigastric pain (principal); R11.10 Vomiting, unspecified; I10 Essential (primary) hypertension; Z87.891 Personal history of nicotine dependence
CPT/HCPCS: 80053; 81025; 83690; 93005; 96361; 96374; 99285; 74177; 81003; 83605; 84484; 84702; 85025; 93010; 99284; J0131; J3490

== ENCOUNTER 2023-12-22 05:11 | Outpatient (CLI) | payer MEDICAID, SELFPAY ==
[2023-12-22 16:00] LABS: HCG Quant, Pregnancy 7 mIU/mL (1-3)
== END 2023-12-22 05:12 | disposition home or self-care (01) ==
LOC: LBO 05:11
PROVIDERS: Nurse Practitioner Adult Health; PCP Nurse Practitioner; Visit Provider Obstetrics & Gynecology Gynecology
DX: R79.89 Other specified abnormal findings of blood chemistry (principal)
CPT/HCPCS: 36415; 84702

== ENCOUNTER 2023-12-24 20:37 | Emergency (ER) | payer MEDICAID, SELFPAY ==
--- NOTE | 2023-12-24 20:30 | RT.EKG_ITS ---
APPROVED REPORT Exam: Resting ECG Reason for Exam: palpitations Patient Location: E HR:90 bpm ECG Measurements Heart Rate 90 AXIS MS 178 P 55 QRSd 98 QRS 50 QT 370 T 57 QTc 453 Conclusion Sinus rhythm...normal P axis, V-rate 60- 99 Normal [place] There are no significant changes compared to prior EKG performed on 12/31/2022 at 22:22.
[2023-12-24 20:45] VITALS: BP 185/105; PULSE 88; RESP 15; TEMP 37.1; O2SAT 100
--- NOTE | 2023-12-24 20:45 | W.ED.GENAD ---
Discharge Plan Disposition Patient Disposition: Home Condition: Good Discharge Details Clinical Impression: Palpitations Primary Care Provider: Zo Shultz ED Provider: Mik Dumont Meds and New Rx's Prescriptions: Continued escitalopram oxalate 10 mg tablet 10 mg PO QDAY Qty: 90 0RF Hold Instructions: Pt Stopped/Never Started Patient Comments: Will start on Thursday12/26/23 clonazepam 0.5 mg tablet 0.5 mg PO DAILY PRN (Reason: anxiety) Qty: 14 0RF CBD Gummie 10 mg PO QAM ondansetron 4 mg tablet,disintegrating 4 mg PO Q8H Qty: 20 0RF Discharge Instructions Instructions: Heart Palpitations (ED) Additional Instructions: You were seen in the ED for palpitations which from what you are describing sounds most likely to be PVCs. Your EKG remains unchanged and normal. Your hemoglobin, electrolytes, TSH are all normal. I do hear a very faint heart murmur. Unlikely to be anything of concern given a negative ECHO 8 years ago but please follow-up with primary care. Avoid stimulants as we discussed. Return to ED for any syncope, persistent chest pain, shortness of breath, other concerns. HPI General Mode of arrival: ambulatory. Date/Time Provider Initiated Documentation: 12/24/23 20:45. Limitations to Documentation: no limitations. Information obtained by: patient, RN notes reviewed and old records reviewed. HPI Narrative: Patient presents to ED with complaint of palpitations. Patient has had palpitations for years. She reports that over the last days she has had very frequent episodes which is not as common. She is not describing a rapid heart rate but she is describing skipped beats. Denies any syncope. Has had previous echo and Holter monitoring about 8 years ago she thinks. She avoids stimulants. Denies any headache or neurologic change, occasional transient chest discomfort lasting seconds. No shortness of breath. Recently started on clonazepam and has been taking Lexapro. Related Data Home Medications Medication Instructions Recorded Confirmed CBD Gummie 10 mg PO QAM 11/20/22 12/24/23 ondansetron 4 mg disintegrating 4 mg PO Q8H #20 tabs 12/11/23 12/24/23 tablet clonazepam 0.5 mg tablet 0.5 mg PO DAILY PRN anxiety #14 12/14/23 12/24/23 tabs escitalopram oxalate 10 mg tablet 10 mg PO QDAY #90 tabs 12/14/23 12/24/23 Previous Rx's Medication Instructions Recorded ondansetron 4 mg disintegrating 4 mg PO Q8H #20 tabs 12/11/23 tablet clonazepam 0.5 mg tablet 0.5 mg PO DAILY PRN anxiety #14 12/14/23 tabs escitalopram oxalate 10 mg tablet 10 mg PO QDAY #90 tabs 12/14/23 Allergies Allergy/AdvReac Type Severity Reaction Status Date / Time lisinopril Allergy Intermediate myalgias,leg Verified 12/24/23 22:04 swelling. aripiprazole [From Abilify] AdvReac Unknown Other (See Verified 12/24/23 22:04 Comment) bupropion [From Wellbutrin] AdvReac Unknown Other (See Verified 12/24/23 22:04 Comment) fluoxetine [From Prozac] AdvReac Unknown Other (See Verified 12/24/23 22:04 Comment) venlafaxine [From Effexor] AdvReac Unknown Other (See Verified 12/24/23 22:04 Comment) zoloft AdvReac Unknown Other (See Uncoded 12/24/23 22:04 Comment) General NANDA: 3 Review of Systems Narrative: Per HPI Exam Narrative Exam Narrative: Const: Obese female in NAD. VS per triage. HEENT: NC/AT. Normal facial exam. Eyes: Normal conjunctiva and sclera. Neck: Supple. Trachea midline. Lungs: Normal respiratory effort. Lungs are clear. Cor: RRR with 2/6 systolic murmur at the left upper sternal border. Good radial pulses. Neuro: A+O x 3. Normal speech, mentation, gait. Cranial nerves II - XII grossly intact. No gross motor or sensory deficit. Ext: No C/C/E. Medical Decision Making Patient presenting to ED with palpitations. From what she is describing to me sound like PVCs. She reports a previous workup and a previous history of same though with more frequent today prompting ED visit. I do detect a faint murmur at the left upper sternal border. She has recently been seen with fairly unremarkable labs. She has been noted to have an elevated hCG for which she will be seeing [facility] next week. Patient's EKG is sinus rhythm with no ectopic beats, unchanged from previous and essentially normal. Patient is reassured. Will check basic lab panel including TSH. Patient's hemoglobin is normal. Chemistries, electrolytes, TSH completely normal. Patient be discharged to follow-up with primary care. She should keep her scheduled [facility] appointment. Avoid stimulants which she is already doing. Return to ED for any syncope, chest pain, shortness of breath, neurologic change. Medical Records Medical records reviewed: Yes I reviewed the patient's medical records. Lab Data Lab results reviewed: Yes I reviewed the patient's lab results. ECG Data Attestation: I personally reviewed and interpreted this ECG (s) as follows: Prior ECG tracings: available for review Interpretation: normal Quality:SDOH Health Related Social Needs: No Data to Display PFSH All Active Problems (Updated 12/24/23 @ 23:08 by Mik Dumont MD) Palpitations (Acute) Pelvic pain (Acute) Elevated serum hCG (Acute) Abdominal pain (Acute) Dental abscess (Acute) Class 3 severe obesity due to excess calories with body mass index (BMI) of 50.0 to 59.9 in adult (Acute) 03/13/23 [facility] Mild obstructive sleep apnea (Acute ~2022) 02/08/23 Polysomnogram Study Bipolar 2 disorder (Acute) Pre-diabetes (Acute) Major depressive disorder (Chronic) Obesity, morbid, BMI 50 or higher (Acute) History of HPV infection (Acute) Acanthosis nigricans (Acute) PMS (premenstrual syndrome) (Acute) Excessive hair growth (Acute) Medical History Hypertension Anxiety PTSD (post-traumatic stress disorder) Borderline personality disorder PCOS (polycystic ovarian syndrome) Hiatal hernia GERD (gastroesophageal reflux disease) Surgical History No significant past surgical history Family History (Updated 09/24/22 @ 10:30 by Marisol Rosenbaum) Father Substance use disorder Cancer kidney Depression Hypertension Crohn's disease Mother Substance use disorder Depression Hypertension Fibromyalgia Paternal Grandmother Colon cancer Maternal Grandmother Cancer cervical Sister Crohn's disease Social History Smoking/Tobacco Use Status: Former Tobacco Use Quit Date: 03/10/21 Tobacco: How many years used: 5 Smoking risk assessment performed?: Yes Alcohol Intake: current Alcohol Intake frequency: holidays/special occasions only Counseling given: No Drug use: Rarely Substance use type: marijuana and other Details: CBD gummie qd Adopted: No Caregiver/Support person: No Foster care: No Household members: children Housing: apartment Number of Children: 1 Communication Needs: None and Corrective Lenses Education Level: high school Do you need help understanding health information?: Never 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 Pets and animals: No Sexually active: Yes Do you think of yourself as: bisexual Current gender identity: female What is your relationship status?: never How often do you talk on the phone with friends or family?: once per week How often do you get together with friends or relatives?: never Do you belong to any clubs or organized social groups?: no Panel score (0-1 are the most socially isolated patients): 0 What type of physical activity do you participate in: yoga Duration: 45-60 minutes/day Frequency: 1-2 times per week Jaylin/Bahai: None Special jaylin needs: No Seatbelt use: always Helmet use: Yes Helmet use: always Drive 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 Date GA/Weeks # Preg Succ Route Wgt Sex Labor Lgth Anesthesia Location [facility] 09/18/14 Yes vaginal 2721.554 g Male Delivery Date: 09/18/14 Last Updated by: Latasha Patterson
[2023-12-24 21:50] LABS: HGB 13.2 g/dL (11.2-15.7); MCH 28.4 pg (27.0-33.0); MCHC 31.4 % (32.0-36.0); MCV 90 fL (80-95); MPV 8.6 fL (8.0-11.0); Platelet Count 385 10^3/uL (130-400); RBC 4.65 10^6/uL (3.93-5.22); RDW 13.3 % (11.7-14.6); RDW-SD 44.4 fL
[2023-12-24 23:03] LABS: Anion Gap 10.5 mmol/L (3-11); BUN 11 mg/dL (7-18); CO2 25.5 mmol/L (21.0-32.0); CREATININE 0.6 mg/dL (0.55-1.02); Chloride 106 mmol/L (98-107); Estimated GFR 125.31 (mL/min/1.73m2); Glucose 106 mg/dL (74-106); Magnesium 1.9 mg/dL (1.8-2.4); Potassium 3.6 mmol/L (3.5-5.1); Sodium 142 mmol/L (136-145); TSH (W/Ref FT4) 3.43 uIU/mL (0.36-3.74)
[2023-12-24 23:33] VITALS: BP 138/74; PULSE 67; RESP 20; O2SAT 99
== END 2023-12-24 23:33 | disposition home or self-care (01) ==
PROVIDERS: Emergency Provider Emergency Medicine; PCP Nurse Practitioner
DX: R00.2 Palpitations (principal); R01.1 Cardiac murmur, unspecified; I10 Essential (primary) hypertension; Z87.891 Personal history of nicotine dependence
CPT/HCPCS: 36415; 80048; 85027; 93005; 99284; 83735; 84443; 93010; 99283

== ENCOUNTER 2023-12-28 05:27 | Outpatient (CLI) | payer MEDICAID, SELFPAY ==
[2023-12-28 14:16] LABS: HCG Quant, Pregnancy 6 mIU/mL (1-3)
== END 2023-12-28 05:28 | disposition home or self-care (01) ==
LOC: LBO 05:27
PROVIDERS: PCP Nurse Practitioner; Visit Provider Obstetrics & Gynecology
DX: R79.89 Other specified abnormal findings of blood chemistry (principal)
CPT/HCPCS: 36415; 84702

== ENCOUNTER 2024-01-07 04:25 | Outpatient (CLI) | payer MEDICAID, SELFPAY ==
[2024-01-22 10:36] LABS: Misc Referral (MAYO) See Comments
== END 2024-01-07 04:26 | disposition home or self-care (01) ==
LOC: LBO 04:25
PROVIDERS: PCP Nurse Practitioner; Visit Provider Obstetrics & Gynecology
DX: N96 Recurrent pregnancy loss (principal)
CPT/HCPCS: 36415; 88230; 88262; 88291

== ENCOUNTER → 2024-01-19 04:41 | Outpatient (CLI) | payer MEDICAID, SELFPAY ==
--- NOTE | 2024-01-19 07:30 | DI.CT_ITS ---
Exam(s) CT CHEST WO EXAM: CT CHEST WO CLINICAL HISTORY: f/u airspace dz, lung nodules in [place],r91.1. TECHNIQUE: Multi planar reconstructions were performed. CONTRAST MATERIAL: None COMPARISON: CT CT ABDOMEN PELVIS W from 12/10/2023 FINDINGS: CHEST: LUNGS: Multiple bilateral noncalcified lung nodules. The largest nodule in the left lung is subpleur al in the lateral aspect of the left upper lobe and measures 7 x 7 mm. The largest nodule in the opp osite-right lung is in the posterior segment of the right upper lobe and measures 7 x 5 mm. There are no confluent infiltrates and there are no pleural effusions. No significant focal findings in the trachea and mainstem bronchi. There is no bronchiectasis. MEDIASTINUM: There is no obvious hilar nor mediastinal adenopathy. Visualized thyroid unremarkable.No obvious axillary adenopathy CARDIAC: Heart size is normal. There is no pericardial effusion.Caliber of the thoracic aorta is wit hin normal limits. VISUALIZED UPPER ABDOMEN:No adrenal masses. OSSEOUS: No significant osseous lesions.No fractures.. IMPRESSION: 1. Multiple bilateral noncalcified lung nodules measuring up to 7 x 7 mm size. 2. No confluent infiltrates, pleural effusions, nor obvious intrathoracic adenopathy 3. An addendum will follow when prior outside CT scan has been received for comparison. RADIATION DOSE DELIVERED: 790.07mGy.cm Total DLP DATA REPOSITORY: All CT scans at this facility are submitted to the National Radiology Data Registry (NRDR) Dose Index Registry (DIR) with the [employer] (ACR). RADIATION OPTIMIZATION: All CT scans at this facility use at least one of these dose optimization te chniques: automated exposure control; mA and/or kV adjustment per patient size (includes targeted exa ms where dose is matched to clinical indication); or iterative reconstruction.
== END ==
PROVIDERS: PCP Nurse Practitioner; Visit Provider Nurse Practitioner
DX: R91.1 Solitary pulmonary nodule (principal)
CPT/HCPCS: 71250

== ENCOUNTER 2024-02-04 15:43 | Outpatient (CLI) | payer MEDICAID, SELFPAY ==
[2024-02-05 09:28] LABS: IgE 11 IU/mL (<158)
[2024-02-05 15:15] LABS: Leukemia/Lymphoma by FC (Blood (See below)
== END 2024-02-04 15:44 | disposition home or self-care (01) ==
LOC: LBO 15:43
PROVIDERS: PCP Nurse Practitioner; Visit Provider Physician Assistant Surgical
DX: R91.8 Other nonspecific abnormal finding of lung field (principal); L83 Acanthosis nigricans; R59.1 Generalized enlarged lymph nodes; D72.829 Elevated white blood cell count, unspecified; J45.909 Unspecified asthma, uncomplicated
CPT/HCPCS: 36415; 88185; 82785; 88184; 88189

== ENCOUNTER 2024-03-01 22:57 | Emergency (ER) | payer MEDICAID, SELFPAY ==
--- NOTE | 2024-03-01 23:00 | RT.EKG_ITS ---
APPROVED REPORT Exam: Resting ECG Reason for Exam: epigastric pain Patient Location: E HR:90 bpm ECG Measurements Heart Rate 90 AXIS FL 164 P 44 QRSd 93 QRS 27 QT 355 T 52 QTc 436 Conclusion Sinus rhythm...normal P axis, V-rate 60- 99 Physician: Rate 90, intervals normal, sinus rhythm, no significant ST elevations or depressions. No STEMI Q waves noted in lead III, unchanged from prior EKG on 12/24/2023
[2024-03-01 23:03] VITALS: BP 127/56; PULSE 93; RESP 18; TEMP 36.8; O2SAT 100
--- NOTE | 2024-03-01 23:15 | DI.RAD_ITS ---
Exam(s) XR PORTABLE CHEST AP EXAM: XR PORTABLE CHEST AP CLINICAL HISTORY: vomiting, chest pain, eval for pneumomediastinum TECHNIQUE: 2D digital imaging was performed of the chest. One image was obtained. An AP view was ob tained. COMPARISON: CT CT CHEST WO from 01/19/2024 FINDINGS: MEDIASTINUM: Normal. HEART: Normal. PULMONARY VASCULATURE: Normal. LUNGS: Clear. PLEURAL SPACE: No pleural effusion or pneumothorax. BONE:Within normal limits for the patient's age. OTHER FINDINGS:Normal. IMPRESSION: No acute pulmonary findings. DATA REPOSITORY: RADIATION DOSE DELIVERED:
[2024-03-01 23:39] LABS: Abs Immature Grans 0.09 10^3/uL (0.0-0.06); Absolute Eosinophil Count 0.26 10^3/uL (0.0-0.7); Absolute Lymphocyte Count 4.42 10^3/uL (1.2-3.4); Absolute Monocyte Count 0.82 10^3/uL (0.1-0.8); Absolute Neutrophil Count 7.84 10^3/uL (1.2-6.7); Basophils % 0.4 %; Eosinophils % 1.9 %; HCT 40.3 % (36.0-46.0); HGB 13.1 g/dL (11.2-15.7); Immature Grans % 0.7 %; Lymphocytes % 32.8 %; MCH 29.3 pg (27.0-33.0); MCHC 32.5 % (32.0-36.0); MCV 90 fL (80-95); MPV 8.7 fL (8.0-11.0); Monocytes % 6.1 %; Neutrophils % 58.1 %; Platelet Count 388 10^3/uL (130-400); RBC 4.47 10^6/uL (3.93-5.22); RDW 13.2 % (11.7-14.6); RDW-SD 43.6 fL; WBC 13.49 10^3/uL (4.4-10.8)
[2024-03-01 23:40] LABS: Absolute Basophil Count 0.05 10^3/uL (0.0-0.2)
[2024-03-01] MEDS: Normal Saline 500 ML IV (23:52)
[2024-03-01] MEDS: Pantoprazole 40 MG VIAL IVP (23:52)
[2024-03-01] MEDS: Famotidine 20 MG/2 ML VIAL IVP (23:52)
[2024-03-01] MEDS: Ondansetron 4 MG/2 ML VIAL IVP (23:52)
[2024-03-01] MEDS: Sucralfate 1 GM TAB 2 GM PO (23:52)
[2024-03-01 23:55] LABS: ALT 42 U/L (14-59); AST 16 U/L (15-37); Albumin 3.7 g/dL (3.4-5.0); Alkaline Phosphatase 68 U/L (46-116); BUN 14 mg/dL (7-18); Bilirubin, Total 0.25 mg/dL (0.2-1.0); CREATININE 0.9 mg/dL (0.55-1.02); Chloride 105 mmol/L (98-107); Glucose 98 mg/dL (74-106); Lipase 31 U/L (16-77); Potassium 3.8 mmol/L (3.5-5.1); Sodium 142 mmol/L (136-145); Total Protein 7.7 g/dL (6.4-8.2)
[2024-03-01 23:58] LABS: Troponin I < 50 ng/L (< or =60)
--- NOTE | 2024-03-02 00:21 | ED.GENADUL_ITS ---
Discharge Plan Disposition Patient Disposition: Home Condition: Good Discharge Details Clinical Impression: Vomiting, Epigastric discomfort Primary Care Provider: Zo Shultz ED Provider: Matt Nam Home Meds and New Rx's Prescriptions: New sucralfate [Carafate] 1 gram tablet 1 g PO BID Qty: 60 0RF pantoprazole [Protonix] 40 mg tablet,delayed release (DR/EC) 40 mg PO DAILY Qty: 60 0RF famotidine 20 mg tablet 20 mg PO DAILY Qty: 60 0RF No Action fluticasone propion-salmeterol [Advair HFA] 115-21 mcg/actuation HFA aerosol inhaler 2 puff inhalation BID Qty: 12 12RF Rx Instructions: administer with spacer ondansetron 4 mg tablet,disintegrating 4 mg PO Q8H Qty: 20 0RF Discharge Instructions Instructions: Gastritis ED Additional Instructions: At this time your laboratory workup is returned very reassuring. There is no evidence of rupture of your esophagus, continued bloody vomiting, pancreatitis or other concerning abnormality. As we discussed together I am concerned that you may be suffering from a mild gastric ulcer which is causing your pain and symptoms. Please stick with a bland diet over the next few weeks. Avoid spicy foods, greasy foods, tomato-based products, or citrus products. Avoid mint. Avoid excessive caffeine. Please take the medications as prescribed. If you notice any worsening of your symptoms, or any new symptoms such as vomiting, diarrhea, fever, chills, shortness of breath, chest pain, numbness, weakness, or fainting , please return immediately to the emergency department for reevaluation. Please follow up with your primary care provider as soon as possible for reassessment and reevaluation. As always, it was a pleasure participating in your medical care today. Referrals: Zo Shultz, ALLEN [Primary Care Provider] - [facility] General Date/Time Provider Initiated Documentation: 03/01/24 23:20 . HPI Narrative: This is a 28-year-old female with a past medical history of hypertension, PCOS, bipolar type II, prediabetic, previous stomach/gastric ulcers, who is currently on the keto diet, presents today for evaluation of vomiting. Patient states that this morning she woke up and had a mild knot in her stomach which felt like a regular heartburn, she took Pepcid, did not eat much throughout the day. She ate later this evening and around 5 PM got extremely nauseous and had 2 episodes of vomiting. During the second episode of vomiting she had some very minimal blood streaking noted in it. She had some mild irritation in the epigastric region in regards to pain, and came to the ER for further assessment. She denies any tearing or ripping sensation in her chest. She denies any difficulty breathing or shortness of breath. No bloody diarrhea. No further bloody vomiting. She is not on any blood thinners. No other complaints at this time. Currently she states that she feels much better. Related Data Home Medications ?Medication ?Instructions ?Recorded ?Confirmed ondansetron 4 mg disintegrating 4 mg PO Q8H #20 tabs 12/11/23 03/01/24 tablet fluticasone propionate 115 2 puff inhalation BID #12 grams 02/03/24 03/01/24 mcg-salmeterol 21 mcg/actuation HFA inhaler (Advair HFA) famotidine 20 mg tablet 20 mg PO DAILY #60 tabs 03/02/24 pantoprazole 40 mg tablet,delayed 40 mg PO DAILY #60 tabs 03/02/24 release (Protonix) sucralfate 1 gram tablet (Carafate) 1 g PO BID #60 tabs 03/02/24 Previous Rx's ?Medication ?Instructions ?Recorded ondansetron 4 mg disintegrating 4 mg PO Q8H #20 tabs 12/11/23 tablet fluticasone propionate 115 2 puff inhalation BID #12 grams 02/03/24 mcg-salmeterol 21 mcg/actuation HFA inhaler (Advair HFA) famotidine 20 mg tablet 20 mg PO DAILY #60 tabs 03/02/24 pantoprazole 40 mg tablet,delayed 40 mg PO DAILY #60 tabs 03/02/24 release (Protonix) sucralfate 1 gram tablet (Carafate) 1 g PO BID #60 tabs 03/02/24 Allergies Allergy/AdvReac Type Severity Reaction Status Date / Time lisinopril Allergy Intermediate myalgias,leg Verified 03/01/24 23:08 swelling. aripiprazole (From Abilify) AdvReac Unknown Other (See Verified 03/01/24 23:08 Comment) bupropion (From Wellbutrin) AdvReac Unknown Other (See Verified 03/01/24 23:08 Comment) fluoxetine (From Prozac) AdvReac Unknown Other (See Verified 03/01/24 23:08 Comment) venlafaxine (From Effexor) AdvReac Unknown Other (See Verified 03/01/24 23:08 Comment) zoloft AdvReac Unknown Other (See Uncoded 03/01/24 23:08 Comment) General Stated Complaint: Abd Prob NANDA: 3 Review of Systems All systems reviewed & are unremarkable except as noted in HPI and below Exam Narrative Exam Narrative: 1.Const: Well-nourished, Well-developed, appearing stated age 2.Eyes: PERRL, no conjunctival injection, and symmetrical lids. 3.ENT: Atraumatic external nose and ears. Moist MM. Neck: Symmetric, trachea midline, No thyromegaly. No subcutaneous crepitus in the chest or neck. 4.CVS: +S1/S2, No murmurs or gallops. Peripheral pulses 2+ and equal in all extremities. Brisk capillary refill in all extremities. 5.RESP: Unlabored respiratory effort. Clear to auscultation bilaterally. No wheezes rales or rhonchi 6.GI: Soft, Nontender/Nondistended, No hepatosplenomegaly. No guarding or rebound. Minimal epigastric achiness on palpation 7.MSK: Normocephalic/Atraumatic, Extremities w/o deformity or ttp No cyanosis or clubbing, Normal movement of all extremities 8.Skin: Warm, Dry. No rashes or lesions. 9.Neuro: bundle person II-XII grossly intact. Sensation grossly intact, no focal neurologic deficits. 10.Psych: (AAO) x3. Appropriate mood and affect Course Vital Signs Vital signs: Vital Signs Temperature 36.8 C 03/01/24 23:03 Pulse 93 H 03/01/24 23:03 Respiratory Rate 18 03/01/24 23:03 Blood Pressure 127/56 L 03/01/24 23:03 Pulse Oximetry 100 03/01/24 23:03 Temperature 36.8 C 03/01/24 23:03 Temperature Source Skin 03/01/24 23:03 Pulse 93 H 03/01/24 23:03 Respiratory Rate 18 03/01/24 23:03 Respiratory Effort Normal 03/01/24 23:06 Blood Pressure 127/56 L 03/01/24 23:03 Blood Pressure Position Sitting 03/01/24 23:03 Pulse Oximetry 100 03/01/24 23:03 Oxygen Delivery Method Room Air 03/01/24 23:03 Oxygen Flow Rate 0 03/01/24 23:03 Lab/Test Results Lab/Test Results: Laboratory Tests Range/Units 03/01/24 23:25 WBC (4.4-10.8) 10^3/uL 13.49 H RBC (3.93-5.22) 10^6/uL 4.47 Hgb (11.2-15.7) g/dL 13.1 Hct (36.0-46.0) % 40.3 MCV (80-95) fL 90 MCH (27.0-33.0) pg 29.3 MCHC (32.0-36.0) % 32.5 RDW (11.7-14.6) % 13.2 Plt Count (130-400) 10^3/uL 388 MPV (8.0-11.0) fL 8.7 Immature Gran % % 0.7 Neutrophils % % 58.1 Lymphocytes % % 32.8 Monocytes % % 6.1 Eosinophils % % 1.9 Basophils % % 0.4 Nucleated RBC % (0.0-0.3) % 0.0 Absolute Neutrophils (1.2-6.7) 10^3/uL 7.84 H Absolute Lymphocytes (1.2-3.4) 10^3/uL 4.42 H Absolute Monocytes (0.1-0.8) 10^3/uL 0.82 H Absolute Eosinophils (0.0-0.7) 10^3/uL 0.26 Absolute Basophils (0.0-0.2) 10^3/uL 0.05 Sodium (136-145) mmol/L 142 Potassium (3.5-5.1) mmol/L 3.8 Chloride (98-107) mmol/L 105 Carbon Dioxide (21.0-32.0) mmol/L 29.0 Anion Gap (3-11) mmol/L 8.0 BUN (7-18) mg/dL 14 Creatinine (0.55-1.02) mg/dL 0.9 Est GFR (CKD-EPI 2020) (mL/min/1.73m2) 89.30 Glucose (74-106) mg/dL 98 Calcium (8.5-10.1) mg/dL 9.0 Total Bilirubin (0.2-1.0) mg/dL 0.25 AST (15-37) U/L 16 ALT (14-59) U/L 42 Alkaline Phosphatase (46-116) U/L 68 Troponin I (< or =60) ng/L < 50 Total Protein (6.4-8.2) g/dL 7.7 Albumin (3.4-5.0) g/dL 3.7 Lipase (16-77) U/L 31 POC- Test(urine) Negative Medical Decision Making This is a 28-year-old female with a past medical history of hypertension, PCOS, bipolar type II, prediabetic, previous stomach/gastric ulcers, who is currently on the keto diet, presents today for evaluation of vomiting. Patient states that this morning she woke up and had a mild knot in her stomach which felt like a regular heartburn, she took Pepcid, did not eat much throughout the day. She ate later this evening and around 5 PM got extremely nauseous and had 2 episodes of vomiting. During the second episode of vomiting she had some very minimal blood streaking noted in it. She had some mild irritation in the epigastric region in regards to pain, and came to the ER for further assessment. She denies any tearing or ripping sensation in her chest. She denies any difficulty breathing or shortness of breath. No bloody diarrhea. No further bloody vomiting. She is not on any blood thinners. No other complaints at this time. Currently she states that she feels much better. Exam demonstrates well-appearing female, vital signs stable, no evidence of significant abdominal pain or tenderness on palpation. No signs of an acute surgical abdomen. No guarding or rebound. Symptoms appear concerning for mild gastric irritation or potential gastritis with a bleeding gastric ulcer. No subcutaneous crepitus to suggest perforation Boerhaave's. We will get a screening x-ray to rule out evidence of free air though. Will give Protonix, famotidine, Carafate and GI cocktail. EKG shows no evidence of significant cardiac etiology. Symptoms unlikely to be pancreatitis. Will evaluate for concerning etiologies, monitor closely and reassess. EKG: Rate 90, intervals normal, sinus rhythm, no significant ST elevations or depressions. No STEMI Q waves noted in lead III, unchanged from prior EKG on 12/24/2023 12:51 AM On reassessment patient is feeling much better. Chest x-ray does show some chronic lung nodules, no acute process. No evidence of free air. Laboratory workup shows minimally elevated white count at 13, and no bandemia. Electrolytes normal, lipase normal, troponin normal, EKG benign. On reassessment patient is feeling much better. She feels well and would like to go home. Patient has had no more vomiting. She has been able to tolerate p.o. well. No persistent hematemesis. Symptoms appear most consistent with mild stomach irritation and potential mild ulcer. Will prescribe Carafate famotidine and Protonix for home use. Recommend bland diet. Discussed red flags for which to return. I have extensively reviewed the treatment plan and discharge instructions with the patient and their family. I have addressed all patient concerns at this time. The patient and family was made aware of what symptoms to monitor for that would warrant a return to the emergency department. Discussed the plan with the patient and family, they demonstrate verbal understanding and agreement with our assessment and plan at this time. The documentation in this chart was dictated using [employer]diant dictation software. Please excuse any dictation errors. FINDINGS: Lungs: Lungs are adequately inflated and symmetric. No focal consolidation or evidence of pulmonary edema. Pleural spaces: No visible pleural effusion. No pneumothorax. Heart/Mediastinum: Cardiomediastinal contours within normal limits for size. No obvious evidence of pneumomediastinum although CT offers a more sensitive evaluation. Bones/joints: No acute osseous finding. IMPRESSION: No acute findings. Thank you for allowing us to participate in the care of your patient. Dictated and Authenticated by: Dakota Steve MD 03/02/2024 12:52 AM Eastern Time ([place] & [place]) Quality:SDOH Health Related Social Needs: No Data to Display PFSH All Active Problems (Updated 03/02/24 @ 00:53 by Matt Nam DO) Epigastric discomfort (Acute) Vomiting (Acute) Elevated WBC count (Chronic) Asthma (Chronic) Lymphadenopathy (Acute) Abnormal CT scan, lung (Acute) History of recurrent miscarriages (Acute) Elevated serum hCG (Acute) Dental abscess (Acute) Class 3 severe obesity due to excess calories with body mass index (BMI) of 50.0 to 59.9 in adult (Acute) 03/13/23 Weight and Wellness Mild obstructive sleep apnea (Acute ~2022) 02/08/23 Polysomnogram Study Bipolar 2 disorder (Acute) Pre-diabetes (Acute) Major depressive disorder (Chronic) Acanthosis nigricans (Acute) PMS (premenstrual syndrome) (Acute) Excessive hair growth (Acute) Medical History Pelvic pain History of HPV infection Obesity, morbid, BMI 50 or higher Hypertension Anxiety PTSD (post-traumatic stress disorder) Borderline personality disorder PCOS (polycystic ovarian syndrome) Hiatal hernia GERD (gastroesophageal reflux disease) Surgical History No significant past surgical history Family History Father Substance use disorder Cancer kidney Depression Hypertension Crohn's disease Mother Substance use disorder Depression Hypertension Fibromyalgia Paternal Grandmother Colon cancer Maternal Grandmother Cancer cervical Sister Crohn's disease Social History Smoking/Tobacco Use Status: Former Tobacco Use Quit Date: 03/10/21 Tobacco: How many years used: 5 Smoking risk assessment performed?: Yes Alcohol Intake: current Alcohol Intake frequency: holidays/special occasions only Counseling given: No Drug use: Rarely Substance use type: marijuana and other Details: CBD gummie qd Adopted: No Caregiver/Support person: No Foster care: No Household members: children Housing: apartment Number of Children: 1 Communication Needs: None and Corrective Lenses Education Level: high school Do you need help understanding health information?: Never current occupation: [employer] Pets and animals: No Sexually active: Yes Do you think of yourself as: bisexual Current gender identity: female What is your relationship status?: never How often do you talk on the phone with friends or family?: once per week How often do you get together with friends or relatives?: never Do you belong to any clubs or organized social groups?: no Panel score (0-1 are the most socially isolated patients): 0 What type of physical activity do you participate in: yoga Duration: 45-60 minutes/day Frequency: 1-2 times per week Jaylin/Synagogue: None Special jaylin needs: No Seatbelt use: always Helmet use: Yes Helmet use: always Drive intox or ride w/intox driver license reviewing officer: No Working smoke detector in home: Yes Carbon monox detector in home: Yes Do you feel safe at home: Yes Do you feel safe in your relationship?: Yes Victim of physical abuse: No Victim of emotional abuse: No History History 3 Para 1 Hx # Term Pregnancies 1 Multiple births Hx # Pregnancies Ectopic pregnancies AB induced Hx Number of Living Children 1 AB spontaneous 2 Past Pregnancies Del. Date GA/Weeks # Preg Succ Route Wgt Sex Labor Lgth Anesth esia Location Prov [facility] 09/18/14 Yes vaginal 2721.554 g Male Delivery Date: 09/18/14 Last Updated by: Latasha Patterson
--- NOTE | 2024-03-02 00:53 | DI.VRAD_ITS ---
PROCEDURE INFORMATION: Exam: XR Chest Exam date and time: 03/02/2024 12:01 AM Age: 28 years old Clinical indication: Pain; Other: Vomitiing; Other: Eval. For pneumomediastnum TECHNIQUE: Imaging protocol: Radiologic exam of the chest. Views: 1 view. COMPARISON: CT CHEST WO 01/19/2024 2:37 PM FINDINGS: Lungs: Lungs are adequately inflated and symmetric. No focal consolidation or evidence of pulmonary edema. Pleural spaces: No visible pleural effusion. No pneumothorax. Heart/Mediastinum: Cardiomediastinal contours within normal limits for size. No obvious evidence of pneumomediastinum although CT offers a more sensitive evaluation. Bones/joints: No acute osseous finding. IMPRESSION: No acute findings. Dictated and Authenticated by: Dakota Steve MD. Ordering:ADRY Gutierrez MD
[2024-03-02 01:04] VITALS: BP 142/82; PULSE 71; RESP 18; TEMP 37; O2SAT 98
== END 2024-03-02 01:11 | disposition home or self-care (01) ==
PROVIDERS: Emergency Provider Student in an Organized Health Care Education/Training Program; PCP Nurse Practitioner
DX: R10.13 Epigastric pain (principal); R11.10 Vomiting, unspecified; I10 Essential (primary) hypertension; F31.81 Bipolar II disorder
CPT/HCPCS: 80053; 83690; 93005; 96361; 96374; 96375; 99285; 71045; 84484; 85025; 93010; 99284; J2405; J2470

== ENCOUNTER 2024-03-07 09:06 | Outpatient (CLI) | payer MEDICAID, SELFPAY ==
[2024-03-08 09:20] LABS: Cyclic Citrullinated Peptide <2.5 U/mL (<5.0)
[2024-03-08 09:29] LABS: IgA 298 mg/dL (85-499); IgG 1005 mg/dL (610-1616); IgM 167 mg/dL (35-242)
[2024-03-08 14:10] LABS: ANA Interpretation Negative (Negative)
== END 2024-03-07 09:07 | disposition home or self-care (01) ==
LOC: LBO 09:06
PROVIDERS: PCP Nurse Practitioner; Visit Provider Physician Assistant Surgical
DX: D72.829 Elevated white blood cell count, unspecified (principal); J45.909 Unspecified asthma, uncomplicated; R59.1 Generalized enlarged lymph nodes
CPT/HCPCS: 36415; 82784; 86200; 86038

== ENCOUNTER 2024-06-17 15:39 | Emergency (ER) | payer MEDICAID, SELFPAY ==
[2024-06-17] VITALS (14 sets, daily range): BP systolic 138–155; BP diastolic 75–77; PULSE 71–97; RESP 18–27; TEMP 36.4; O2SAT 97–100
--- NOTE | 2024-06-17 15:30 | RT.EKG_ITS ---
APPROVED REPORT Exam: Resting ECG Reason for Exam: palpitations Patient Location: E HR:84 bpm ECG Measurements Heart Rate 84 AXIS WA 166 P 49 QRSd 94 QRS 23 QT 360 T 53 QTc 427 Conclusion Sinus rhythm 84 normal axis no stemi
--- NOTE | 2024-06-17 16:23 | W.ED.GENAD ---
Discharge Plan Disposition Patient Disposition: Home Condition: Stable Discharge Details Clinical Impression: Palpitations Primary Care Provider: Zo Shultz ED Provider: Matt Finley Home Meds and New Rx's Prescriptions: Continued fluticasone propion-salmeterol [Advair HFA] 115-21 mcg/actuation HFA aerosol inhaler 2 puff inhalation BID Qty: 12 12RF Rx Instructions: administer with spacer meclizine 25 mg tablet 25 mg PO PRN albuterol sulfate 90 mcg/actuation HFA aerosol inhaler 2 puff inhalation QID PRN (Reason: shortness of breath or wheezing) Qty: 8.5 5RF propranolol 10 mg tablet 10 mg PO BID Qty: 60 1RF ondansetron 4 mg tablet,disintegrating 4 mg PO Q8H Qty: 20 0RF sucralfate [Carafate] 1 gram tablet 1 g PO BID Qty: 60 0RF pantoprazole [Protonix] 40 mg tablet,delayed release (DR/EC) 40 mg PO DAILY Qty: 60 0RF famotidine 20 mg tablet 20 mg PO DAILY Qty: 60 0RF Discharge Instructions Instructions: Palpitations ED Additional Instructions: You were seen in the emergency department for your heart palpitations, this is likely a component of your anxiety, your cardiac workup is completely negative. Please follow-up with your primary care provider for possible referral to cardiology for possible long-term heart monitor otherwise I do not see any emergent conditions going on, there is a tick panel pending which can sometimes be a cause of palpitations. Please return to the emergency department for any onset of chest pain, dizziness, near fainting Referrals: Zo Shultz, ALLEN [Primary Care Provider] - Discharge Data Discharge Date/Time-TO BE ENTERED AT DEPARTURE: 06/17/24 18:46 HPI General Date/Time Provider Initiated Documentation: 06/17/24 15:59. HPI Narrative: 29 year-old female presents to ED today by POV/ambulating with a chief complaint of palpitations with onset chronically and intermittently. Quality described as fluttering of chest, recently started on propranolol, no radiation to chest pain, shortness of breath, fever, cough, endorses chest discomfort, mild dizziness last night. States he her rate went down to 54 after taking propranolol. Severity is described as moderate. Palliating factors include nothing specific. Provoking factors include nothing specific. Events leading up to the incident/Associated Symptoms: Patient has history of anxiety. Patient not anticoagulated. Related Data Home Medications ?Medication ?Instructions ?Recorded ?Confirmed ondansetron 4 mg disintegrating 4 mg PO Q8H #20 tabs 12/11/23 06/17/24 tablet fluticasone propionate 115 2 puff inhalation BID #12 grams 02/03/24 06/17/24 mcg-salmeterol 21 mcg/actuation HFA inhaler (Advair HFA) famotidine 20 mg tablet 20 mg PO DAILY #60 tabs 03/02/24 06/17/24 pantoprazole 40 mg tablet,delayed 40 mg PO DAILY #60 tabs 03/02/24 06/17/24 release (Protonix) sucralfate 1 gram tablet (Carafate) 1 g PO BID #60 tabs 03/02/24 06/17/24 albuterol sulfate 90 mcg/actuation 2 puff inhalation QID PRN 03/07/24 06/17/24 aerosol inhaler shortness of breath or wheezing #8.5 grams meclizine 25 mg tablet 25 mg PO PRN 03/07/24 06/17/24 propranolol 10 mg tablet 10 mg PO BID #60 tabs 06/09/24 06/17/24 Previous Rx's ?Medication ?Instructions ?Recorded ondansetron 4 mg disintegrating 4 mg PO Q8H #20 tabs 12/11/23 tablet fluticasone propionate 115 2 puff inhalation BID #12 grams 02/03/24 mcg-salmeterol 21 mcg/actuation HFA inhaler (Advair HFA) famotidine 20 mg tablet 20 mg PO DAILY #60 tabs 03/02/24 pantoprazole 40 mg tablet,delayed 40 mg PO DAILY #60 tabs 03/02/24 release (Protonix) sucralfate 1 gram tablet (Carafate) 1 g PO BID #60 tabs 03/02/24 albuterol sulfate 90 mcg/actuation 2 puff inhalation QID PRN 03/07/24 aerosol inhaler shortness of breath or wheezing #8.5 grams propranolol 10 mg tablet 10 mg PO BID #60 tabs 06/09/24 Allergies Allergy/AdvReac Type Severity Reaction Status Date / Time lisinopril Allergy Intermediate myalgias,leg Verified 06/17/24 15:48 swelling. aripiprazole (From Abilify) AdvReac Unknown Other (See Verified 06/17/24 15:48 Comment) bupropion (From Wellbutrin) AdvReac Unknown Other (See Verified 06/17/24 15:48 Comment) fluoxetine (From Prozac) AdvReac Unknown Other (See Verified 06/17/24 15:48 Comment) venlafaxine (From Effexor) AdvReac Unknown Other (See Verified 06/17/24 15:48 Comment) zoloft AdvReac Unknown Other (See Uncoded 06/17/24 15:48 Comment) General Stated Complaint: Palpitatns NANDA: 3 Review of Systems All systems reviewed & are unremarkable except as noted in HPI and below Exam Narrative Exam Narrative: GENERAL APPEARANCE: Well-nourished, non-toxic, awake and alert, atraumatic, no acute distress. SKIN: Warm, pink, dry, intact, without rashes/lesions/ulcerations. HEAD: Normocephalic, atraumatic, normal hair distribution for gender/age. EYES: Normal conjunctiva, no exudates on lids/lashes. ENT: Nares patent, no circumoral cyanosis, no facial swelling NECK: Supple, trachea midline, painless cervical ROM. LUNGS/CHEST: Lungs CTA bilaterally, non-labored respirations, normal A/P diameter, symmetrical expansion, no chest wall deformity HEART (CV/PV): Regular rate and rhythm without murmur, no peripheral edema, no JVD. ABDOMEN: Soft, non-distended, no guarding. MSK: Normal ROM, no swelling/deformity to bilateral UEs or LEs, moving all extremities without weakness, no cyanosis, spine midline without tenderness, normal curvature. NEURO: Mental Status AAOx4 - alert to person, place, time, events No facial droop, no forehead involvement. Motor: No focal weakness - strength 5/5 in bilateral UEs and LEs, proximal and distal, symmetric. Sensory: sensation intact to light touch globally. Gait normal: patient ambulated without ataxia into ED room. PSYCH: euthymic, cooperative, pleasant, appropriate speech Course Vital Signs Vital signs: Vital Signs Temperature 36.4 C L 06/17/24 15:42 Pulse 84 06/17/24 15:42 Respiratory Rate 18 06/17/24 15:42 Blood Pressure 138/76 06/17/24 15:42 Pulse Oximetry 100 06/17/24 15:42 Temperature 36.4 C L 06/17/24 15:42 Pulse 84 06/17/24 15:42 Respiratory Rate 18 06/17/24 15:42 Respiratory Effort Normal 06/17/24 15:49 Blood Pressure 138/76 06/17/24 15:42 Pulse Oximetry 100 06/17/24 15:42 Pain Level 3 06/17/24 15:42 Medical Decision Making This dictation utilizes [id number] dictation software and may contain unedited grammatical errors. 29 year-old female presents to ED today by POV/ambulating with a chief complaint of palpitations with onset chronically and intermittently. Quality described as fluttering of chest, recently started on propranolol, no radiation to chest pain, shortness of breath, fever, cough, endorses chest discomfort, mild dizziness last night. States he her rate went down to 54 after taking propranolol. Severity is described as moderate. Palliating factors include nothing specific. Provoking factors include nothing specific. Events leading up to the incident/Associated Symptoms: Patient has history of anxiety. Patients' medical history: Anxiety, asthma, obesity, prediabetes. Family and social history: states + FHx of cardiac issues Pertinent exam findings / vital signs include benign cardiopulmonary exam, neuro intact, NAD. Differential / pathologies of concern include anxiety, costochondritis, palpitations, unlikely ACS, unlikely PE- LOW well's, no OCPs Diagnostic studies of: -CBC, CMP, Trop I, Lipase, TSH, CXR, EKG. -CBC shows a mild leukocytosis at 13.74, nonspecific -CMP benign -Troponin negative with reliable onset -Lipase within normal -TSH within normal limits -Chest x-ray without acute abnormality -EKG within normal limits, normal intervals, normal sinus rhythm, no ST changes Interventions of: -None. ED Course/Assessment/Plan: 29-year-old female with history of anxiety disorder presents for palpitations, over the past few days been having palpitations feelings of tachycardia, concerned that her heart rate went down to 54, recently started on propranolol for anxiety, reports chest discomfort but cardiac workup is negative, heart score is low. Recommend the patient follow-up with her primary care provider, strict return criteria for worsening chest pain especially with running associated symptoms like sweating, near fainting, shortness of breath, exertional onset. Findings not consistent with PE, ACS, pneumonia, arrhythmia. Disposition of Palpitations. Patient verbalized understanding of the plan and return to ED criteria and engaged in shared decision making. Medical Records Medical records reviewed: Yes I reviewed the patient's medical records. Imaging Data Radiologic Study: Attestation: I personally reviewed and interpreted this imaging study as follows: Imaging: X-Ray Radiologist's impression: EXAM: XR CHEST 2V PA LATERAL CLINICAL HISTORY: palpitations TECHNIQUE: 2D digital imaging was performed. Two views. COMPARISON: No exams were available for comparison FINDINGS: The exam is limited by under penetration on the lateral view HEART: Normal size. Aorta: Not dilated. PULMONARY VASCULATURE: Normal. MEDIASTINUM: Unremarkable. LUNGS: Clear. PLEURAL SPACE: No pleural effusion or pneumothorax. BONE:Unremarkable for age. SOFT TISSUES: Unremarkable. IMPRESSION: No acute abnormality. Lab Data Lab results reviewed: Yes I reviewed the patient's lab results. Labs: Laboratory Tests Range/Units 06/17/24 16:51 WBC (4.4-10.8) 10^3/uL 13.74 H RBC (3.93-5.22) 10^6/uL 4.79 Hgb (11.2-15.7) g/dL 13.8 Hct (36.0-46.0) % 42.5 MCV (80-95) fL 89 MCH (27.0-33.0) pg 28.8 MCHC (32.0-36.0) % 32.5 RDW (11.7-14.6) % 13.2 Plt Count (130-400) 10^3/uL 460 H MPV (8.0-11.0) fL 8.6 Immature Gran % % 0.7 Neutrophils % % 65.1 Lymphocytes % % 26.3 Monocytes % % 5.7 Eosinophils % % 1.5 Basophils % % 0.7 Nucleated RBC % (0.0-0.3) % 0.0 Absolute Neutrophils (1.2-6.7) 10^3/uL 8.94 H Absolute Lymphocytes (1.2-3.4) 10^3/uL 3.61 H Absolute Monocytes (0.1-0.8) 10^3/uL 0.78 Absolute Eosinophils (0.0-0.7) 10^3/uL 0.21 Absolute Basophils (0.0-0.2) 10^3/uL 0.10 Sodium (136-145) mmol/L 142 Potassium (3.5-5.1) mmol/L 4.0 Chloride (98-107) mmol/L 106 Carbon Dioxide (21.0-32.0) mmol/L 27.3 Anion Gap (3-11) mmol/L 8.7 BUN (7-18) mg/dL 10 Creatinine (0.55-1.02) mg/dL 0.7 Est GFR (CKD-EPI 2020) (mL/min/1.73m2) 119.99 Glucose (74-106) mg/dL 95 Calcium (8.5-10.1) mg/dL 9.7 Magnesium (1.8-2.4) mg/dL 2.1 Total Bilirubin (0.2-1.0) mg/dL 0.32 AST (15-37) U/L 16 ALT (14-59) U/L 33 Alkaline Phosphatase (46-116) U/L 60 Troponin I (<or=51) ng/L < 4 Total Protein (6.4-8.2) g/dL 8.1 Albumin (3.4-5.0) g/dL 3.8 Lipase (16-77) U/L 27 TSH (0.36-3.74) uIU/mL 3.46 Quality:SDOH Health Related Social Needs: No Data to Display PFSH All Active Problems (Updated 06/17/24 @ 18:30 by ANDRES Piper) Palpitations (Acute) Panic anxiety syndrome (Acute) Pulmonary nodules (Acute) Elevated WBC count (Chronic) Asthma (Chronic) Lymphadenopathy (Acute) Abnormal CT scan, lung (Acute) History of recurrent miscarriages (Acute) Elevated serum hCG (Acute) Dental abscess (Acute) Class 3 severe obesity due to excess calories with body mass index (BMI) of 50.0 to 59.9 in adult (Acute) 03/13/23 Weight and Wellness Mild obstructive sleep apnea (Acute ~2022) 02/08/23 Polysomnogram Study Bipolar 2 disorder (Acute) Pre-diabetes (Acute) Major depressive disorder (Chronic) Acanthosis nigricans (Acute) PMS (premenstrual syndrome) (Acute) Excessive hair growth (Acute) Medical History Pelvic pain History of HPV infection Obesity, morbid, BMI 50 or higher Hypertension Anxiety PTSD (post-traumatic stress disorder) Borderline personality disorder PCOS (polycystic ovarian syndrome) Hiatal hernia GERD (gastroesophageal reflux disease) Surgical History No significant past surgical history Family History Father Substance use disorder Cancer kidney Depression Hypertension Crohn's disease Mother Substance use disorder Depression Hypertension Fibromyalgia Paternal Grandmother Colon cancer Maternal Grandmother Cancer cervical Sister Crohn's disease Social History Smoking/Tobacco Use Status: Former Tobacco Use Quit Date: 03/10/21 Tobacco: How many years used: 5 Smoking risk assessment performed?: Yes Alcohol Intake: current Alcohol Intake frequency: holidays/special occasions only Counseling given: No Drug use: Rarely Substance use type: marijuana and other Details: CBD gummie qd Adopted: No Caregiver/Support person: No Foster care: No Household members: children Housing: apartment Number of Children: 1 Communication Needs: None and Corrective Lenses Education Level: high school Do you need help understanding health information?: Never current occupation: [employer] Pets and animals: No Sexually active: Yes Do you think of yourself as: bisexual Current gender identity: female What is your relationship status?: never How often do you talk on the phone with friends or family?: once per week How often do you get together with friends or relatives?: never Do you belong to any clubs or organized social groups?: no Panel score (0-1 are the most socially isolated patients): 0 What type of physical activity do you participate in: yoga Duration: 45-60 minutes/day Frequency: 1-2 times per week Jaylin/Shinto: None Special jaylin needs: No Seatbelt use: always Helmet use: Yes Helmet use: always Drive intox 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 Date GA/Weeks # Preg Succ Route Wgt Sex Labor Lgth Anesthesia Location Prov Complic 09/18/14 Yes vaginal 2721.554 g Male Delivery Date: 09/18/14 Last Updated by: Latasha Patterson
[2024-06-17 16:59] LABS: Absolute Eosinophil Count 0.21 10^3/uL (0.0-0.7); Absolute Lymphocyte Count 3.61 10^3/uL (1.2-3.4); Absolute Monocyte Count 0.78 10^3/uL (0.1-0.8); Absolute Neutrophil Count 8.94 10^3/uL (1.2-6.7); Basophils % 0.7 %; Eosinophils % 1.5 %; HCT 42.5 % (36.0-46.0); HGB 13.8 g/dL (11.2-15.7); Immature Grans % 0.7 %; Lymphocytes % 26.3 %; MCH 28.8 pg (27.0-33.0); MCHC 32.5 % (32.0-36.0); MCV 89 fL (80-95); MPV 8.6 fL (8.0-11.0); Monocytes % 5.7 %; Neutrophils % 65.1 %; Platelet Count 460 10^3/uL (130-400); RBC 4.79 10^6/uL (3.93-5.22); RDW 13.2 % (11.7-14.6); RDW-SD 43.4 fL; WBC 13.74 10^3/uL (4.4-10.8)
[2024-06-17 17:27] LABS: ALT 33 U/L (14-59); AST 16 U/L (15-37); Albumin 3.8 g/dL (3.4-5.0); Alkaline Phosphatase 60 U/L (46-116); Anion Gap 8.7 mmol/L (3-11); BUN 10 mg/dL (7-18); Bilirubin, Total 0.32 mg/dL (0.2-1.0); CO2 27.3 mmol/L (21.0-32.0); CREATININE 0.7 mg/dL (0.55-1.02); Calcium 9.7 mg/dL (8.5-10.1); Chloride 106 mmol/L (98-107); Estimated GFR 119.99 (mL/min/1.73m2); Glucose 95 mg/dL (74-106); Lipase 27 U/L (16-77); Magnesium 2.1 mg/dL (1.8-2.4); Sodium 142 mmol/L (136-145); TSH (W/Ref FT4) 3.46 uIU/mL (0.36-3.74); Total Protein 8.1 g/dL (6.4-8.2)
[2024-06-17 17:29] LABS: Troponin I < 4 ng/L (<or=51)
--- NOTE | 2024-06-17 17:30 | DI.RAD_ITS ---
Exam(s) XR CHEST 2V PA LATERAL EXAM: XR CHEST 2V PA LATERAL CLINICAL HISTORY: palpitations TECHNIQUE: 2D digital imaging was performed. Two views. COMPARISON: No exams were available for comparison FINDINGS: The exam is limited by under penetration on the lateral view HEART: Normal size. Aorta: Not dilated. PULMONARY VASCULATURE: Normal. MEDIASTINUM: Unremarkable. LUNGS: Clear. PLEURAL SPACE: No pleural effusion or pneumothorax. BONE:Unremarkable for age. SOFT TISSUES: Unremarkable. IMPRESSION: No acute abnormality. DATA REPOSITORY: RADIATION DOSE DELIVERED:
[2024-06-20 11:25] LABS: Lyme Ab w Rflx to Lyme Confirm Negative (Negative)
[2024-06-20 21:47] LABS: Anaplasma phagocytophilum Negative (Negative); B. miyamotoi PCR Negative (Negative); Babesia divergens/MO-1 Negative (Negative); Babesia duncani Negative (Negative); Babesia microti Negative (Negative); Ehrlichia chaffeensis Negative (Negative); Ehrlichia ewingii/canis Negative (Negative); Ehrlichia muris eauclairensis Negative (Negative)
== END 2024-06-17 18:46 | disposition home or self-care (01) ==
PROVIDERS: Emergency Provider Physician Assistant; PCP Nurse Practitioner
DX: R00.2 Palpitations (principal); F41.9 Anxiety disorder, unspecified; I10 Essential (primary) hypertension; Z82.49 Family history of ischemic heart disease and other diseases of the circulatory system; Z87.891 Personal history of nicotine dependence
CPT/HCPCS: 36415; 80053; 83690; 87798; 93005; 99285; 71046; 83735; 84443; 84484; 85025; 86618; 93010; 99284

== ENCOUNTER 2024-08-19 00:26 | Outpatient (CLI) | payer MEDICAID, SELFPAY ==
--- NOTE | 2024-08-19 07:00 | DI.CT_ITS ---
Exam(s) CT CHEST WO EXAM: CT CHEST WO CLINICAL HISTORY: 6 month follow up PULMONARY NODULES,R91.8. TECHNIQUE: Imaging protocol: Axial computed tomography images were obtained and coronal and sagittal reformatted images were created and reviewed. Lung Computer Aided Detection (CAD) was utilized. COMPARISON: CT CT CHEST WO from 01/19/2024 FINDINGS: Tracheobronchial tree: Patent where visualized. No bronchiectasis is present. Pulmonary parenchyma: There is a mild ground-glass infiltrate in the right and right lower lobes. Th ere is a new 8 mm nodule in the inferior aspect of the right upper lobe (series 2, image 59). There is a new 4 mm nodule in the superior segment of the right lower lobe (series 2, image 70). The previ ously seen nodules have resolved. This includes the subpleural nodule in the left upper lobe previou sly measuring 7 mm. This is no longer visualized. The previously seen nodule in the posterior aspec t of the right upper lobe is no longer visualized. No architectural distortion. Mediastinum and Lizett: No dominant adenopathy or fluid collection. The esophagus is unremarkable. Thyroid gland: Unremarkable. Pleura: No effusion or pneumothorax. Heart: The heart is not dilated. No coronary artery calcifications are seen. No pericardial effusion. Aorta: Thoracic aorta non-dilated. Upper abdomen: Unremarkable. Lymph nodes: Within normal limits. Soft tissues: Unremarkable. Bones:Within normal limits for the patient's age. IMPRESSION: 1. Resolution of most of the prior pulmonary nodules. 2. Multifocal ground-glass infiltrates predominantly on the right with new nodules in the right lung. The largest measures 8 mm. This may all reflect inflammatory or infectious process. Follow-up exa mination in 6 months is recommended for re-evaluation. RADIATION DOSE DELIVERED: 464.15mGy.cm Total DLP 464.15mGy.cm Total DLP DATA REPOSITORY: All CT scans at this facility are submitted to the National Radiology Data Registry (NRDR) Dose Index Registry (DIR) with the [employer] (A[employer]). RADIATION OPTIMIZATION: All CT scans at this facility use at least one of these dose optimization te chniques: automated exposure control; mA and/or kV adjustment per patient size (includes targeted exa ms where dose is matched to clinical indication); or iterative reconstruction.
== END 2024-08-19 00:46 ==
LOC: DI 00:26
PROVIDERS: PCP Nurse Practitioner; Visit Provider Physician Assistant Surgical
DX: R91.8 Other nonspecific abnormal finding of lung field (principal)
CPT/HCPCS: 71250

== ENCOUNTER 2024-11-22 15:05 | Outpatient (CLI) | payer MEDICAID, SELFPAY ==
--- NOTE | 2024-11-22 10:45 | DI.US_ITS ---
Exam(s) US LOWER EXTREMITY VENOUS LT EXAM: US LOWER EXTREMITY VENOUS LT CLINICAL HISTORY: left leg pain, M79.605. TECHNIQUE: Lower extremity venous ultrasound performed using grayscale, color-flow, and spectral Do ppler analysis. COMPARISON: No exams were available for comparison FINDINGS: The common femoral, femoral and popliteal veins demonstrate normal compressibility, augmentation, and color Doppler. The posterior tibial and peroneal veins are patent. No saphenous vein thrombosis or other superficial venous thrombosis is seen. No hematoma or Mahan's cyst is seen. No visible soft tissue mass. IMPRESSION: Negative lower extremity ultrasound. No evidence of DVT. DATA REPOSITORY:
== END 2024-11-22 15:25 ==
LOC: DI 15:05
PROVIDERS: PCP Nurse Practitioner; Visit Provider Physician Assistant
DX: M79.605 Pain in left leg (principal)
CPT/HCPCS: 93971

== ENCOUNTER 2025-07-30 10:37 | Emergency (ER) | payer MEDICAID, SELFPAY ==
--- NOTE | 2025-07-30 10:45 | ED.GENADUL_ITS ---
Discharge Plan Disposition Patient Disposition: Home Discharge Details Clinical Impression: Viral upper respiratory infection Primary Care Provider: Zo Shultz ED Provider: Domingo Fink Home Meds and New Rx's Prescriptions: New cetirizine 10 mg tablet 10 mg PO DAILY PRNQty: 7 0RF benzonatate 100 mg capsule 100 mg PO BID PRNQty: 7 0RF budesonide-formoterol 80-4.5 mcg/actuation HFA aerosol inhaler 2 puff inhalation Q12H Qty: 10.2 0RF Rx Instructions: 1-2 puffs once to twice daily for maintenance. Continued fluticasone propion-salmeterol [Advair HFA] 115-21 mcg/actuation HFA aerosol inhaler 2 puff inhalation BID Qty: 12 12RF Rx Instructions: administer with spacer meclizine 25 mg tablet 25 mg PO PRN albuterol sulfate 90 mcg/actuation HFA aerosol inhaler 2 puff inhalation QID PRN (Reason: shortness of breath or wheezing) Qty: 8.5 5RF quetiapine 25 mg tablet See Rx Instructions PO .COMPLEX Qty: 60 2RF Rx Instructions: Take 1 - 2 tabs, by mouth, qHS for mood stability/insomnia propranolol 10 mg tablet 10 mg PO BID PRN (Reason: palpitations/anxiety) Qty: 180 1RF sucralfate [Carafate] 1 gram tablet 1 g PO BID Qty: 60 0RF famotidine 20 mg tablet 20 mg PO DAILY Qty: 60 0RF Discharge Instructions Additional Instructions: You are seen in the emergency department for your cough. Your blood pressure was high. Please follow-up with your primary care provider. You have no signs of COVID influenza nor RSV. Your chest x-ray showed no signs of pneumonia. Please return if your symptoms worsen. Stand Alone Forms: Portal Information HPI General Date/Time Provider Initiated Documentation: 07/30/25 10:45 . HPI Narrative: MDM This is an overall well-appearing mildly hypertensive but normothermic and not tachycardic 30-year-old female with cough and URI symptoms most likely secondary to viral etiology given reassuring chest x-ray. COVID influenza swab all negative. No wheezes to suggest exacerbation of reactive airway disease. No black or bloody stools to suggest acute blood loss anemia. No history of acute heart failure to suggest acute CHF and no indication for bedside echocardiogram nor diuretics. No trauma to chest and equal breath sounds so doubt pneumothorax. Good range of motion in neck making my suspicion lower for retropharyngeal abscess. No chest pain to suggest tamponade. In the absence of chest pain nausea vomiting I did not feel that the patient required an ECG. No wheezes to suggest benefit from nebulized albuterol and ipratropium. Patient saturating well on room air with no respiratory distress. Uvula midline so I was not suspicious for peritonsillar abscess. Nontoxic making my suspicion lower for bacterial tracheitis. Handling secretions so doubt epiglottitis. Will prescribe some supportive medications to patient's pharmacy. We discussed that she should return if she developed any increasing shortness of breath fevers chills nausea or vomiting. She understood her return indications and was discharged with an empiric trial of expectant outpatient management. Patient has had elevated blood pressures in the past. She is on as needed propranolol. I was not suspicious of any endorgan damage so I did not feel she required any laboratory evaluation in the ED. HPI This is a patient with a history of chronic nodules presenting with cough and runny nose. The patient reports experiencing a persistent cough and runny nose for the past few weeks. The symptoms began with a severe sore throat upon awakening approximately 2 weeks ago. She experienced a burning sensation in her face for 3 days, without mucus production, and felt confused. She also reported migraines and nausea for 2 days. After feeling better for 2 days, she began experiencing difficulty breathing and a worsening cough, particularly in the mornings. She has a history of chronic nodules and elevated eosinophil levels, with her last scan revealing 8 nodules since she was 20 years old. She is under the care of a office correspondent who has been unable to determine the cause of her symptoms. The patient reports intermittent fevers and sweating episodes. Her appetite has been suppressed due to her illness, but she has no difficulty swallowing. Over the past 2 days, she has experienced a sensation of choking while speaking. She reports no chest or abdominal pain, attributing any discomfort to her coughing. Exam General: Well-appearing in no acute distress speaking in complete sentences. Head: Normocephalic, atraumatic. Eye: Extraocular eye movements intact. No conjunctival injection. No scleral icterus. Ear, nose, mouth, throat: Grossly normal inspection. Normal voice, handling secretions normally. Uvula midline. Neck: Trachea midline. Full range of motion in neck. Cardiovascular: Well-perfused distal extremities. Regular rate and rhythm Respiratory: Nonlabored respiration. Clear lungs bilaterally. No end expiratory wheezes. Gastrointestinal: Nondistended abdomen. Musculoskeletal: No edema. Moving all 4 extremities spontaneously. Skin: Normal for age and race, grossly normal temperature and turgor. No acute rash. Neurologic: Alert and appropriate, no apparent acute deficits. Psychiatric: Mood and manner are appropriate. Grooming and personal hygiene are appropriate. Related Data Home Medications ?Medication ?Instructions ?Recorded ?Confirmed fluticasone propionate 115 2 puff inhalation BID #12 g cortney 02/03/24 11/22/24 mcg-salmeterol 21 mcg/actuation HFA inhaler (Advair HFA) famotidine 20 mg tablet 20 mg PO DAILY #60 tabs 02/0811/22/24 sucralfate 1 gram tablet (Carafate) 1 g PO BID #60 tab s 03/02/24 11/22/24 albuterol sulfate 90 mcg/actuation 2 puff inhalation Q ID PRN 03/07/24 11/22/24 aerosol inhaler shortness of breath or wheez ing #8.5 grams meclizine 25 mg tablet 25 mg PO PRN 03/07/24 quetiapine 25 mg tablet See Rx Instructions PO .COMP JAMIE 07/25/24 11/22/24 #60 tabs propranolol 10 mg tablet 10 mg PO BID PRN 09/26/24 palpitations/anxiety #180 tabs benzonatate 100 mg capsule 100 mg PO BID PRN #7 caps 1 09/30/24 budesonide-formoterol HFA 80 2 puff inhalation Q12H #1 0.2 grams 07/30/25 mcg-4.5 mcg/actuation aerosol inhaler cetirizine 10 mg tablet 10 mg PO DAILY PRN #7 tabs 1 09/30/24 Previous Rx's ?Medication ?Instructions ?Recorded fluticasone propionate 115 2 puff inhalation BID #12 g cortney 02/03/24 mcg-salmeterol 21 mcg/actuation HFA inhaler (Advair HFA) famotidine 20 mg tablet 20 mg PO DAILY #60 tabs 02/08 12/01 sucralfate 1 gram tablet (Carafate) 1 g PO BID #60 tab s 03/02/24 albuterol sulfate 90 mcg/actuation 2 puff inhalation Q ID PRN 03/07/24 aerosol inhaler shortness of breath or wheez ing #8.5 grams quetiapine 25 mg tablet See Rx Instructions PO .COMP JAMIE 07/25/24 #60 tabs propranolol 10 mg tablet 10 mg PO BID PRN 09/26/24 palpitations/anxiety #180 tabs benzonatate 100 mg capsule 100 mg PO BID PRN #7 caps 1 09/30/24 budesonide-formoterol HFA 80 2 puff inhalation Q12H #1 0.2 grams 07/30/25 mcg-4.5 mcg/actuation aerosol inhaler cetirizine 10 mg tablet 10 mg PO DAILY PRN #7 tabs 1 09/30/24 Allergies Allergy/AdvReac Type Severity Reaction Status Date / Time lisinopril Allergy Intermediate myalgias,leg Verified 07/30/25 10:52 swelling. aripiprazole (From Abilify) AdvReac Unknown Other (See Verified 07/30/25 10:52 Comment) bupropion (From Wellbutrin) AdvReac Unknown Other (See Verified 07/30/25 10:52 Comment) fluoxetine (From Prozac) AdvReac Unknown Other (See Verified 07/30/25 10:52 Comment) venlafaxine (From Effexor) AdvReac Unknown Other (See Verified 07/30/25 10:52 Comment) zoloft AdvReac Unknown Other (See Uncoded 07/30/25 10:52 Comment) General NANDA: 3 PFSH All Active Problems (Updated 07/30/25 @ 12:10 by Domingo Fink MD) Viral upper respiratory infection (Acute) Panic anxiety syndrome (Acute) Pulmonary nodules (Acute) Elevated WBC count (Chronic) Asthma (Chronic) Lymphadenopathy (Acute) Abnormal CT scan, lung (Acute) History of recurrent miscarriages (Acute) Elevated serum hCG (Acute) Dental abscess (Acute) Class 3 severe obesity due to excess calories with body mass index (BMI) of 50.0 to 59.9 in adult (Acute) 03/13/23 Weight and Wellness Mild obstructive sleep apnea (Acute ~2022) 02/08/23 Polysomnogram Study Bipolar 2 disorder (Acute) Pre-diabetes (Acute) Major depressive disorder (Chronic) Acanthosis nigricans (Acute) PMS (premenstrual syndrome) (Acute) Excessive hair growth (Acute) Medical History Pelvic pain History of HPV infection Obesity, morbid, BMI 50 or higher Hypertension Anxiety PTSD (post-traumatic stress disorder) Borderline personality disorder PCOS (polycystic ovarian syndrome) Hiatal hernia GERD (gastroesophageal reflux disease) Surgical History No significant past surgical history Family History Father Substance use disorder Cancer kidney Depression Hypertension Crohn's disease Mother Substance use disorder Depression Hypertension Fibromyalgia Paternal Grandmother Colon cancer Maternal Grandmother Cancer cervical Sister Crohn's disease Social History Smoking/Tobacco Use Status: Former Tobacco Use Quit Date: 03/10/21 Tobacco: How many years used: 5 Smoking risk assessment performed?: Yes Alcohol Intake: current Alcohol Intake frequency: holidays/special occasions only Counseling given: No Drug use: Rarely Substance use type: marijuana and other Details: CBD gummie qd Adopted: No Caregiver/Support person: No Foster care: No Household members: children Housing: apartment Number of Children: 1 Communication Needs: None and Corrective Lenses Education Level: high school Do you need help understanding health information?: Never 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 Pets and animals: No Sexually active: Yes Do you think of yourself as: bisexual Current gender identity: female What is your relationship status?: never How often do you talk on the phone with friends or family?: once per week How often do you get together with friends or relatives?: never Do you belong to any clubs or organized social groups?: no Panel score (0-1 are the most socially isolated patients): 0 What type of physical activity do you participate in: yoga Duration: 45-60 minutes/day Frequency: 1-2 times per week Jaylin/Baptism: None Special jaylin needs: No Seatbelt use: always Helmet use: Yes Helmet use: always Drive intox or ride w/intox wagon driver salesperson: No Working smoke detector in home: Yes Carbon monox detector in home: Yes Do you feel safe at home: Yes Do you feel safe in your relationship?: Yes Victim of physical abuse: No Victim of emotional abuse: No History History 3 Para 1 Hx # Term Pregnancies 1 Multiple births Hx # Pregnancies Ectopic pregnancies AB induced Hx Number of Living Children 1 AB spontaneous 2 Past Pregnancies Del. Date GA/Weeks # Preg Succ Route Wgt Sex Labor Lgth Anesth esia Location Prov Complic 09/18/14 Yes vaginal 2721.554 g Male Delivery Date: 09/18/14 Last Updated by: Latasha Patterson
[2025-07-30 10:46] VITALS: BP 167/104; PULSE 89; RESP 18; TEMP 36.8; O2SAT 98
--- NOTE | 2025-07-30 11:00 | DI.RAD_ITS ---
Exam(s) XR CHEST 2V PA LATERAL EXAM: XR CHEST 2V PA LATERAL CLINICAL HISTORY: Cough TECHNIQUE: 2D digital imaging was performed of the chest. Two images were obtained. PA and lateral views were obtained. COMPARISON: CR,XR XR PORTABLE CHEST AP from 03/02/2024 CR XR CHEST 2V PA LATERAL from 06/17/2024 FINDINGS: MEDIASTINUM: Normal. HEART: Normal. PULMONARY VASCULATURE: Normal. LUNGS: Clear. PLEURAL SPACE: No pleural effusion or pneumothorax. BONE:Within normal limits for the patient's age. OTHER FINDINGS:Normal. IMPRESSION: 1. No acute pulmonary findings. 2. The preliminary [facility] report was reviewed. DATA REPOSITORY: RADIATION DOSE DELIVERED:
--- NOTE | 2025-07-30 11:53 | DI.[facility]_ITS ---
PROCEDURE INFORMATION: Exam: XR Chest Exam date and time: 07/30/2025 11:32 AM Age: 30 years old Clinical indication: Cough TECHNIQUE: Imaging protocol: Radiologic exam of the chest. Views: 2 views. COMPARISON: CT CHEST WO 08/19/2024 9:02 AM FINDINGS: Lungs: Unremarkable. No consolidation. Pleural spaces: Unremarkable. No pleural effusion. No pneumothorax. Heart/Mediastinum: Unremarkable. No cardiomegaly. Bones/joints: Unremarkable. IMPRESSION: No acute findings. Dictated and Authenticated by: Grzegorz Bishop MD. Orderin Danae Lane MD
[2025-07-30 12:02] LABS: COVID-19 PCR Negative (Negative); RSV PCR Negative (Negative)
[2025-07-30 12:19] VITALS: BP 149/86; BP 167/104; PULSE 87; PULSE 89; RESP 18; TEMP 36.8; O2SAT 97; O2SAT 98
== END 2025-07-30 12:22 | disposition home or self-care (01) ==
PROVIDERS: Emergency Provider Emergency Medicine; PCP Nurse Practitioner
DX: J06.9 Acute upper respiratory infection, unspecified (principal)
CPT/HCPCS: 99283 ×2; 81025; 87637; 71046